=== PATIENT | male | born 1955 | race Caucasian/White ===

== ENCOUNTER 2020-07-08 20:18 | Inpatient (IN) ==
[2020-07-08] MEDS ORDERED: SODIUM CHLORIDE 0.9% 1000ML 1,000 ML IV SCH (23:15)
--- NOTE | 2020-07-08 23:15 | Emergency Department Note ---
History of Present Illness General Chief complaint: Wound Stated complaint: ankle pain in both ankles Time Seen by Provider: 07/08/20 23:00 Source: patient Mode of arrival: ambulatory Limitations: no limitations History of Present Illness Provider complaint: Bilateral leg infection Onset (ago): month(s) 1 Location: lower extremity Radiation: non-radiation Pain Consistency: + constant Maximum Pain Intensity: 5 Quality: + aching Relieved By: + none Exacerbated By: + none Associated symptoms: + denies other symptoms Treatments prior to arrival: none This is a 64-year-old male who presents the emergency room at the insistence of his daughter after he showed her wounds to his lower extremities which she states first began a month ago. He states that began bilateral, and he thought it was a small area that had bruised from perhaps bumping into something. Patient does admit to being a diabetic and having diabetic neuropathy. Patient states he does not check his blood sugar at home. Patient states he uses oral diabetic medication. Patient states he has never had cellulitis. Patient states wounds did not heal and continued to worsen which led to increased edema, redness, weeping, and swelling. Patient denies any other rash or sores in any other extremity. Patient denies fevers or chills, nausea vomiting, abdominal pain, dizziness, or joint swelling. Patient denies any URI symptoms, or known exposure to coronavirus. Pt seen during a time of high acuity and national emergency pandemic while wearing PPE. Home Medications Medication Instructions Recorded Confirmed Type atorvastatin 10 mg PO DAILY 07/09/20 07/09/20 History benazepril 40 mg PO BID 07/09/20 07/09/20 History cyanocobalamin (vitamin B-12) 1,000 mcg PO DAILY 07/09/20 07/09/20 History diltiazem HCl [Cardizem CD] 180 mg PO DAILY 07/09/20 07/09/20 History empagliflozin [Jardiance] 25 mg PO DAILY 07/09/20 07/09/20 History glipizide 5 mg PO BID 07/09/20 07/09/20 History hydrochlorothiazide 50 mg PO DAILY 07/09/20 07/09/20 History metformin 500 mg PO BID 07/09/20 07/09/20 History metoprolol succinate 100 mg PO BID 07/09/20 07/09/20 History warfarin 5 mg PO DAILY 07/09/20 07/09/20 History Allergies Allergy/AdvReac Type Severity Reaction Status Date / Time No Known Allergies Allergy Unverified 07/09/20 00:34 Past Med/Surg History Social History Smoking Status: Never smoker Preferred Language: Yi Feels Safe at Home: Yes Review of Systems See HPI for pertinent positives & negatives. and A total of 10 systems reviewed and were otherwise negative Physical Exam Vital Signs Vital Signs - 24 hr 07/08/20 20:30 07/08/20 22:54 07/08/20 23:00 Temperature 36.6 C Temperature Source Oral Pulse Rate 95 H 95 H 83 Pulse Rate from SpO2 Sensor 94 H Pulse Rhythm Regular Respiratory Rate 18 15 18 Respiratory Effort / Characteristics Non-Labored Spontaneous Non-Labored Spontaneous Respiratory Depth Normal Respiratory Pattern Regular Blood Pressure 105/70 98/73 L Blood Pressure Mean 81 76 Blood Pressure Position Sitting Pulse Oximetry 95 100 98 Oxygen Delivery Method Room Air Room Air Sepsis Recent Fever Within 48 Hours No Sepsis New/Unexplained Change in Mental Status N/A Sepsis Action Taken by Nursing No Action Required 07/09/20 00:45 07/09/20 01:00 07/09/20 01:30 Temperature Temperature Source Pulse Rate 89 88 85 Pulse Rate from SpO2 Sensor Pulse Rhythm Respiratory Rate 12 16 14 Respiratory Effort / Characteristics Respiratory Depth Respiratory Pattern Blood Pressure 110/83 113/73 107/63 Blood Pressure Mean 95 76 83 Blood Pressure Position Pulse Oximetry 98 98 98 Oxygen Delivery Method Sepsis Recent Fever Within 48 Hours Sepsis New/Unexplained Change in Mental Status Sepsis Action Taken by Nursing 07/09/20 02:01 Temperature Temperature Source Pulse Rate 86 Pulse Rate from SpO2 Sensor Pulse Rhythm Respiratory Rate 15 Respiratory Effort / Characteristics Respiratory Depth Respiratory Pattern Blood Pressure 120/97 Blood Pressure Mean 113 Blood Pressure Position Pulse Oximetry 98 Oxygen Delivery Method Sepsis Recent Fever Within 48 Hours Sepsis New/Unexplained Change in Mental Status Sepsis Action Taken by Nursing GENERAL: alert, well appearing, well nourished, no distress, non-toxic EYE EXAM: normal conjunctiva, PERRL and EOM's grossly intact OROPHARYNX: no exudate, no erythema, lips, buccal mucosa, and tongue normal and mucous membranes are moist NECK: supple, no nuchal rigidity, no adenopathy, non-tender LUNGS: Clear to auscultation. Normal chest wall mechanics, no w/r/r HEART: no murmurs, S1 normal and S2 normal ABDOMEN: abdomen soft, non-tender, normo-active bowel sounds, no masses, no rebound or guarding. BACK: Back is symmetrical on inspection and there is no deformity, no midline tenderness, no CVA tenderness. SKIN: No rashes/sores noted with the exception of bilateral lower extremities with evidence of worsening wounds, cellulitis, weeping from blistered areas UPPER EXTREMITIES: upper extremities are grossly normal. FROM, nml pulses b/l. LOWER EXTREMITIES: 2+ pitting edema. Significant bilateral distal lower extremities near circumferential cellulitis, excoriated lesions, crusting, old appearing wounds, FROM, nml pulses b/l. NEURO EXAM: Normal sensorium, cranial nerves II-XII grossly intact, normal speech, no gross weakness of arms, no gross weakness of legs. Gross sensation intact. Course Course 0026: Updated pt on results. Asking for tums. 0040: Discussed with Dr. Urrutia. Administered Medications Insulin Human Regular 250 (units/ Sodium Chloride) 250 mls @ 3.9 mls/hr IV .Q24H [facility]; Protocol Stop: 08/08/20 00:14 Last Titration: 07/09/20 03:34 Dose: 0 units/hr, 0 mls/hr Documented by: [id number] Cosigned by: [id number] Titration: 07/09/20 02:00 Dose: 3.9 units/hr, 3.9 mls/hr Documented by: [id number] Cosigned by: [id number] Admin: 07/09/20 00:56 Dose: 3.9 units/hr, 3.9 mls/hr Documented by: [id number] Cosigned by: [id number] Sodium Chloride (Nss 1000ml) 1,000 mls @ 250 mls/hr IV .Q4H ONE Stop: 07/09/20 05:25 Last Admin: 07/09/20 01:50 Dose: 250 mls/hr Documented by: [id number] Discontinued Medications Calcium Carbonate (Calcium Carbonate 500 Mg Chewable Tab) 500 mg PO NOW STA Stop: 07/09/20 00:14 Last Admin: 07/09/20 00:28 Dose: 500 mg Documented by: [id number] Famotidine (Famotidine 20mg/5ml Iv Push) 20 mg IV ONE STA Stop: 07/09/20 00:14 Last Admin: 07/09/20 00:28 Dose: 20 mg Documented by: [id number] Sodium Chloride (Nss 1000ml) 1,000 mls @ 125 mls/hr IV .Q8H [facility] Stop: 08/07/20 23:14 Last Infusion: 07/09/20 02:07 Dose: 0 mls/hr Documented by: [id number] Admin: 07/09/20 00:09 Dose: 125 mls/hr Documented by: [id number] Cefepime HCl (Maxipime) 2,000 mg in 20 mls @ 5 mls/min IV NOW STA Stop: 07/08/20 23:35 Last Admin: 07/09/20 00:08 Dose: 5 mls/min Documented by: [id number] Vancomycin HCl 2,000 mg/ (Sodium Chloride) 540 mls @ 200 mls/hr IV NOW ONE Stop: 07/09/20 02:13 Last Admin: 07/09/20 00:08 Dose: 200 mls/hr Documented by: [id number] Sodium Chloride (Nss 1000ml) 1,000 mls @ 999 mls/hr IV .Q1H1M ONE Stop: 07/09/20 01:09 Last Infusion: 07/09/20 02:07 Dose: 0 mls/hr Documented by: [id number] Admin: 07/09/20 00:53 Dose: 999 mls/hr Documented by: [id number] Insulin Human Regular (Novolin-R Bolus From Bag) 8 units IV ONE ONE Stop: 07/09/20 00:31 Last Admin: 07/09/20 00:57 Dose: 8 units Documented by: [id number] Cosigned by: [id number] Critical Care Time Critical Care Time: Yes Total Critical Care Time: 42 Critical care of 42 min performed to assess and manage high likelihood of life- threatening HHS and cellulitis, involving labs and imaging performed with assessment to evaluate HHS and cellulitis diagnosis with frequent reassessment. This time includes bedside time, treatment discussions with patient/family /consultants, documentation time and excludes procedure time. Medical Decision Making Differential Diagnosis Differential diagnosis includees etiologies such as cellulitis, abscess, MRSA infection, DVT, necrotizing fasciitis, dermatitis, drug eruption, as well as others were entertained. Medical Records Attestation: I reviewed the patient's medical records. Home Medications Current Medication List: was personally reviewed by me Laboratory Data Attestation: I reviewed the patient's lab results. Result diagrams: 07/09/20 00:43 07/08/20 22:33 Lab Results 07/08/20 07/08/20 07/08/20 Range/Units 22:33 22:33 23:00 WBC Cancelled RBC Cancelled Hgb Cancelled Hct Cancelled MCV Cancelled MCH Cancelled MCHC Cancelled RDW Std Deviation Cancelled RDW Coeff of Jamal Cancelled Plt Count Cancelled MPV Cancelled Immature Gran % (Auto) Cancelled Neut % (Auto) Cancelled Lymph % (Auto) Cancelled Schley % (Auto) Cancelled Eos % (Auto) Cancelled Baso % (Auto) Cancelled Neut # (Auto) Cancelled Lymph # (Auto) Cancelled Schley # (Auto) Cancelled Eos # (Auto) Cancelled Baso # (Auto) Cancelled Immature Gran # (Auto) Cancelled Absolute Nucleated RBC Cancelled Nucleated RBC % (auto) Cancelled Neutrophils % (Manual) Cancelled Band Neutrophils % Cancelled Lymphocytes % (Manual) Cancelled Prolymphocyte % Cancelled Reactive Lymphs % (Man) Cancelled Monocytes % (Manual) Cancelled Eosinophils % (Manual) Cancelled Basophils % (Manual) Cancelled Metamyelocytes % (Man) Cancelled Myelocytes % (Man) Cancelled Promyelocytes % (Man) Cancelled Blast Cells % (Manual) Cancelled Plasma Cell % (Manual) Cancelled Other Cells % Cancelled Nucleated RBC % Cancelled Neutrophils # (Manual) Cancelled Band Neutrophils # Cancelled Total Absolute Neuts Cancelled Lymphocytes # (Manual) Cancelled Prolymphocyte # Cancelled Reactive Lymphs # Cancelled Total Abs Lymphocytes Cancelled Monocytes # (Manual) Cancelled Eosinophils # (Manual) Cancelled Basophils # (Manual) Cancelled Metamyelocytes # (Man) Cancelled Myelocytes # (Manual) Cancelled Promyelocytes # (Man) Cancelled Blast Cells # (Man) Cancelled Plasma Cell # (Manual) Cancelled Other Cells # Cancelled Nucleated RBCs # (Man) Cancelled Hypersegmented Neuts Cancelled Hyposegmented Neuts Cancelled Hypogranular Neuts Cancelled Large Granular Lymphs Cancelled # Lrg Granular Lymphs Cancelled Hairy Cells Cancelled Smudge Cells Cancelled Toxic Granulation Cancelled Toxic Vacuolation Cancelled Dohle Bodies Cancelled David Rods Cancelled Platelet Estimate Cancelled Hypogranular Platelets Cancelled Clumped Platelets Cancelled Giant Platelets Cancelled Platelet Satelliting Cancelled RBC Morphology Cancelled Polychromasia Cancelled Hypochromasia Cancelled Poikilocytosis Cancelled Basophilic Stippling Cancelled Anisocytosis Cancelled Microcytosis Cancelled Macrocytosis Cancelled Spherocytes Cancelled Pappenheimer Bodies Cancelled Sickle Cells Cancelled Target Cells Cancelled Tear Drop Cells Cancelled Ovalocytes Cancelled Stomatocytes Cancelled Glover-Bells Bodies Cancelled Echinocytes Cancelled Acanthocytes (Spur) Cancelled Rouleaux Cancelled RBC Agglutinates Cancelled Schistocytes Cancelled RBC Morph Comment Cancelled Sezary Cell Cancelled PT (9.0-12.0) Seconds INR (0.9-1.1) APTT (21.0-31.0) Seconds PTT Ratio ABG pH (7.35-7.45) ABG pCO2 (35-46) mmHg ABG pO2 (80-95) mmHg ABG HCO3 (19-24) mmol/L ABG O2 Saturation (90-95) % ABG Base Excess (-9-1.8) mEq/L Mario Test (Pos) Barometric Pressure mm/Hg Oxygen Given Sodium 122 L (136-145) mmol/L Potassium 5.7 H (3.5-5.1) mmol/L Chloride 91 L (98-107) mmol/L Carbon Dioxide 20 L (21-32) mmol/L Anion Gap 11.0 (3-11) BUN 79 H (7-18) mg/dl Creatinine 2.80 H (0.6-1.4) mg/dl Est Cr Clr Drug Dosing 33.4 ml/min Est GFR ( Amer) 26.1 Est GFR (Non-Af Amer) 22.5 BUN/Creatinine Ratio 28.1 H (10-20) Glucose 645 H* (70-99) mg/dl POC Glucose > 600 H* (70-99) mg/dl Lactate (0.4-2.0) mmol/L Calcium 9.0 (8.5-10.1) mg/dl Phosphorus (2.5-4.9) mg/dl Magnesium (1.8-2.4) mg/dl Total Bilirubin 0.4 (0.2-1) mg/dl AST 16 (15-37) U/L ALT 19 (12-78) U/L Alkaline Phosphatase 165 H (45-117) U/L Total Protein 8.4 H (6.4-8.2) gm/dl Albumin 2.2 L (3.4-5.0) gm/dl Globulin 6.2 H (2.5-4.0) gm/dl Albumin/Globulin Ratio 0.4 L (0.9-2) Beta-Hydroxybutyric Acd 1.12 (0.2-2.81) mg/dl Procalcitonin (0-0.5) ng/ml Specimen Hemolysis SARS-CoV-2 Ag (Rapid) (Negative) 07/08/20 07/08/20 07/08/20 Range/Units 23:02 23:17 23:17 WBC RBC Hgb Hct MCV MCH MCHC RDW Std Deviation RDW Coeff of Jamal Plt Count MPV Immature Gran % (Auto) Neut % (Auto) Lymph % (Auto) Schley % (Auto) Eos % (Auto) Baso % (Auto) Neut # (Auto) Lymph # (Auto) Schley # (Auto) Eos # (Auto) Baso # (Auto) Immature Gran # (Auto) Absolute Nucleated RBC Nucleated RBC % (auto) Neutrophils % (Manual) Band Neutrophils % Lymphocytes % (Manual) Prolymphocyte % Reactive Lymphs % (Man) Monocytes % (Manual) Eosinophils % (Manual) Basophils % (Manual) Metamyelocytes % (Man) Myelocytes % (Man) Promyelocytes % (Man) Blast Cells % (Manual) Plasma Cell % (Manual) Other Cells % Nucleated RBC % Neutrophils # (Manual) Band Neutrophils # Total Absolute Neuts Lymphocytes # (Manual) Prolymphocyte # Reactive Lymphs # Total Abs Lymphocytes Monocytes # (Manual) Eosinophils # (Manual) Basophils # (Manual) Metamyelocytes # (Man) Myelocytes # (Manual) Promyelocytes # (Man) Blast Cells # (Man) Plasma Cell # (Manual) Other Cells # Nucleated RBCs # (Man) Hypersegmented Neuts Hyposegmented Neuts Hypogranular Neuts Large Granular Lymphs # Lrg Granular Lymphs Hairy Cells Smudge Cells Toxic Granulation Toxic Vacuolation Dohle Bodies David Rods Platelet Estimate Hypogranular Platelets Clumped Platelets Giant Platelets Platelet Satelliting RBC Morphology Polychromasia Hypochromasia Poikilocytosis Basophilic Stippling Anisocytosis Microcytosis Macrocytosis Spherocytes Pappenheimer Bodies Sickle Cells Target Cells Tear Drop Cells Ovalocytes Stomatocytes Glover-Bells Bodies Echinocytes Acanthocytes (Spur) Rouleaux RBC Agglutinates Schistocytes RBC Morph Comment Sezary Cell PT 65.5 H (9.0-12.0) Seconds INR 6.9 H* (0.9-1.1) APTT 64.4 H* (21.0-31.0) Seconds PTT Ratio 2.3 ABG pH (7.35-7.45) ABG pCO2 (35-46) mmHg ABG pO2 (80-95) mmHg ABG HCO3 (19-24) mmol/L ABG O2 Saturation (90-95) % ABG Base Excess (-9-1.8) mEq/L Mario Test (Pos) Barometric Pressure mm/Hg Oxygen Given Sodium (136-145) mmol/L Potassium (3.5-5.1) mmol/L Chloride (98-107) mmol/L Carbon Dioxide (21-32) mmol/L Anion Gap (3-11) BUN (7-18) mg/dl Creatinine (0.6-1.4) mg/dl Est Cr Clr Drug Dosing ml/min Est GFR ( Amer) Est GFR (Non-Af Amer) BUN/Creatinine Ratio (10-20) Glucose (70-99) mg/dl POC Glucose > 600 H* (70-99) mg/dl Lactate (0.4-2.0) mmol/L Calcium (8.5-10.1) mg/dl Phosphorus (2.5-4.9) mg/dl Magnesium 2.5 H (1.8-2.4) mg/dl Total Bilirubin (0.2-1) mg/dl AST (15-37) U/L ALT (12-78) U/L Alkaline Phosphatase (45-117) U/L Total Protein (6.4-8.2) gm/dl Albumin (3.4-5.0) gm/dl Globulin (2.5-4.0) gm/dl Albumin/Globulin Ratio (0.9-2) Beta-Hydroxybutyric Acd (0.2-2.81) mg/dl Procalcitonin (0-0.5) ng/ml Specimen Hemolysis SARS-CoV-2 Ag (Rapid) (Negative) 07/08/20 07/09/20 07/09/20 Range/Units 23:36 00:40 00:43 WBC RBC Hgb Hct MCV MCH MCHC RDW Std Deviation RDW Coeff of Jamal Plt Count MPV Immature Gran % (Auto) Neut % (Auto) Lymph % (Auto) Schley % (Auto) Eos % (Auto) Baso % (Auto) Neut # (Auto) Lymph # (Auto) Schley # (Auto) Eos # (Auto) Baso # (Auto) Immature Gran # (Auto) Absolute Nucleated RBC Nucleated RBC % (auto) Neutrophils % (Manual) Band Neutrophils % Lymphocytes % (Manual) Prolymphocyte % Reactive Lymphs % (Man) Monocytes % (Manual) Eosinophils % (Manual) Basophils % (Manual) Metamyelocytes % (Man) Myelocytes % (Man) Promyelocytes % (Man) Blast Cells % (Manual) Plasma Cell % (Manual) Other Cells % Nucleated RBC % Neutrophils # (Manual) Band Neutrophils # Total Absolute Neuts Lymphocytes # (Manual) Prolymphocyte # Reactive Lymphs # Total Abs Lymphocytes Monocytes # (Manual) Eosinophils # (Manual) Basophils # (Manual) Metamyelocytes # (Man) Myelocytes # (Manual) Promyelocytes # (Man) Blast Cells # (Man) Plasma Cell # (Manual) Other Cells # Nucleated RBCs # (Man) Hypersegmented Neuts Hyposegmented Neuts Hypogranular Neuts Large Granular Lymphs # Lrg Granular Lymphs Hairy Cells Smudge Cells Toxic Granulation Toxic Vacuolation Dohle Bodies David Rods Platelet Estimate Hypogranular Platelets Clumped Platelets Giant Platelets Platelet Satelliting RBC Morphology Polychromasia Hypochromasia Poikilocytosis Basophilic Stippling Anisocytosis Microcytosis Macrocytosis Spherocytes Pappenheimer Bodies Sickle Cells Target Cells Tear Drop Cells Ovalocytes Stomatocytes Glover-Bells Bodies Echinocytes Acanthocytes (Spur) Rouleaux RBC Agglutinates Schistocytes RBC Morph Comment Sezary Cell PT (9.0-12.0) Seconds INR (0.9-1.1) APTT (21.0-31.0) Seconds PTT Ratio ABG pH (7.35-7.45) ABG pCO2 (35-46) mmHg ABG pO2 (80-95) mmHg ABG HCO3 (19-24) mmol/L ABG O2 Saturation (90-95) % ABG Base Excess (-9-1.8) mEq/L Mario Test (Pos) Barometric Pressure mm/Hg Oxygen Given Sodium (136-145) mmol/L Potassium (3.5-5.1) mmol/L Chloride (98-107) mmol/L Carbon Dioxide (21-32) mmol/L Anion Gap (3-11) BUN (7-18) mg/dl Creatinine (0.6-1.4) mg/dl Est Cr Clr Drug Dosing ml/min Est GFR ( Amer) Est GFR (Non-Af Amer) BUN/Creatinine Ratio (10-20) Glucose (70-99) mg/dl POC Glucose (70-99) mg/dl Lactate 3.0 H* (0.4-2.0) mmol/L Calcium (8.5-10.1) mg/dl Phosphorus 3.4 (2.5-4.9) mg/dl Magnesium (1.8-2.4) mg/dl Total Bilirubin (0.2-1) mg/dl AST (15-37) U/L ALT (12-78) U/L Alkaline Phosphatase (45-117) U/L Total Protein (6.4-8.2) gm/dl Albumin (3.4-5.0) gm/dl Globulin (2.5-4.0) gm/dl Albumin/Globulin Ratio (0.9-2) Beta-Hydroxybutyric Acd (0.2-2.81) mg/dl Procalcitonin 0.14 (0-0.5) ng/ml Specimen Hemolysis SARS-CoV-2 Ag (Rapid) (Negative) 07/09/20 07/09/20 07/09/20 Range/Units 00:43 00:43 00:43 WBC 9.35 RBC 4.19 L Hgb 11.7 L Hct 34.6 L MCV 82.6 MCH 27.9 MCHC 33.8 RDW Std Deviation 43.2 RDW Coeff of Jamal 14.4 Plt Count 274 MPV 11.2 H Immature Gran % (Auto) 0.4 Neut % (Auto) 71.3 Lymph % (Auto) 14.2 Schley % (Auto) 12.9 Eos % (Auto) 1.1 Baso % (Auto) 0.1 Neut # (Auto) 6.66 H Lymph # (Auto) 1.33 Schley # (Auto) 1.21 H Eos # (Auto) 0.10 Baso # (Auto) 0.01 Immature Gran # (Auto) 0.04 H Absolute Nucleated RBC Nucleated RBC % (auto) Neutrophils % (Manual) Band Neutrophils % Lymphocytes % (Manual) Prolymphocyte % Reactive Lymphs % (Man) Monocytes % (Manual) Eosinophils % (Manual) Basophils % (Manual) Metamyelocytes % (Man) Myelocytes % (Man) Promyelocytes % (Man) Blast Cells % (Manual) Plasma Cell % (Manual) Other Cells % Nucleated RBC % Neutrophils # (Manual) Band Neutrophils # Total Absolute Neuts Lymphocytes # (Manual) Prolymphocyte # Reactive Lymphs # Total Abs Lymphocytes Monocytes # (Manual) Eosinophils # (Manual) Basophils # (Manual) Metamyelocytes # (Man) Myelocytes # (Manual) Promyelocytes # (Man) Blast Cells # (Man) Plasma Cell # (Manual) Other Cells # Nucleated RBCs # (Man) Hypersegmented Neuts Hyposegmented Neuts Hypogranular Neuts Large Granular Lymphs # Lrg Granular Lymphs Hairy Cells Smudge Cells Toxic Granulation Toxic Vacuolation Dohle Bodies David Rods Platelet Estimate Hypogranular Platelets Clumped Platelets Giant Platelets Platelet Satelliting RBC Morphology Polychromasia Hypochromasia Poikilocytosis Basophilic Stippling Anisocytosis Microcytosis Macrocytosis Spherocytes Pappenheimer Bodies Sickle Cells Target Cells Tear Drop Cells Ovalocytes Stomatocytes Glover-Bells Bodies Echinocytes Acanthocytes (Spur) Rouleaux RBC Agglutinates Schistocytes RBC Morph Comment Sezary Cell PT (9.0-12.0) Seconds INR (0.9-1.1) APTT (21.0-31.0) Seconds PTT Ratio ABG pH 7.37 (7.35-7.45) ABG pCO2 32 L (35-46) mmHg ABG pO2 105 H (80-95) mmHg ABG HCO3 18 L (19-24) mmol/L ABG O2 Saturation 97.9 H (90-95) % ABG Base Excess -6.5 (-9-1.8) mEq/L Mario Test Pos (Pos) Barometric Pressure 729.7 mm/Hg Oxygen Given ROOMAIR Sodium (136-145) mmol/L Potassium (3.5-5.1) mmol/L Chloride (98-107) mmol/L Carbon Dioxide (21-32) mmol/L Anion Gap (3-11) BUN (7-18) mg/dl Creatinine (0.6-1.4) mg/dl Est Cr Clr Drug Dosing ml/min Est GFR ( Amer) Est GFR (Non-Af Amer) BUN/Creatinine Ratio (10-20) Glucose (70-99) mg/dl POC Glucose (70-99) mg/dl Lactate 2.1 H* (0.4-2.0) mmol/L Calcium (8.5-10.1) mg/dl Phosphorus (2.5-4.9) mg/dl Magnesium (1.8-2.4) mg/dl Total Bilirubin (0.2-1) mg/dl AST (15-37) U/L ALT (12-78) U/L Alkaline Phosphatase (45-117) U/L Total Protein (6.4-8.2) gm/dl Albumin (3.4-5.0) gm/dl Globulin (2.5-4.0) gm/dl Albumin/Globulin Ratio (0.9-2) Beta-Hydroxybutyric Acd (0.2-2.81) mg/dl Procalcitonin (0-0.5) ng/ml Specimen Hemolysis SARS-CoV-2 Ag (Rapid) (Negative) 07/09/20 07/09/20 07/09/20 Range/Units 01:56 02:10 03:19 WBC RBC Hgb Hct MCV MCH MCHC RDW Std Deviation RDW Coeff of Jamal Plt Count MPV Immature Gran % (Auto) Neut % (Auto) Lymph % (Auto) Schley % (Auto) Eos % (Auto) Baso % (Auto) Neut # (Auto) Lymph # (Auto) Schley # (Auto) Eos # (Auto) Baso # (Auto) Immature Gran # (Auto) Absolute Nucleated RBC Nucleated RBC % (auto) Neutrophils % (Manual) Band Neutrophils % Lymphocytes % (Manual) Prolymphocyte % Reactive Lymphs % (Man) Monocytes % (Manual) Eosinophils % (Manual) Basophils % (Manual) Metamyelocytes % (Man) Myelocytes % (Man) Promyelocytes % (Man) Blast Cells % (Manual) Plasma Cell % (Manual) Other Cells % Nucleated RBC % Neutrophils # (Manual) Band Neutrophils # Total Absolute Neuts Lymphocytes # (Manual) Prolymphocyte # Reactive Lymphs # Total Abs Lymphocytes Monocytes # (Manual) Eosinophils # (Manual) Basophils # (Manual) Metamyelocytes # (Man) Myelocytes # (Manual) Promyelocytes # (Man) Blast Cells # (Man) Plasma Cell # (Manual) Other Cells # Nucleated RBCs # (Man) Hypersegmented Neuts Hyposegmented Neuts Hypogranular Neuts Large Granular Lymphs # Lrg Granular Lymphs Hairy Cells Smudge Cells Toxic Granulation Toxic Vacuolation Dohle Bodies David Rods Platelet Estimate Hypogranular Platelets Clumped Platelets Giant Platelets Platelet Satelliting RBC Morphology Polychromasia Hypochromasia Poikilocytosis Basophilic Stippling Anisocytosis Microcytosis Macrocytosis Spherocytes Pappenheimer Bodies Sickle Cells Target Cells Tear Drop Cells Ovalocytes Stomatocytes Glover-Bells Bodies Echinocytes Acanthocytes (Spur) Rouleaux RBC Agglutinates Schistocytes RBC Morph Comment Sezary Cell PT (9.0-12.0) Seconds INR (0.9-1.1) APTT (21.0-31.0) Seconds PTT Ratio ABG pH (7.35-7.45) ABG pCO2 (35-46) mmHg ABG pO2 (80-95) mmHg ABG HCO3 (19-24) mmol/L ABG O2 Saturation (90-95) % ABG Base Excess (-9-1.8) mEq/L Mario Test (Pos) Barometric Pressure mm/Hg Oxygen Given Sodium (136-145) mmol/L Potassium (3.5-5.1) mmol/L Chloride (98-107) mmol/L Carbon Dioxide (21-32) mmol/L Anion Gap (3-11) BUN (7-18) mg/dl Creatinine (0.6-1.4) mg/dl Est Cr Clr Drug Dosing ml/min Est GFR ( Amer) Est GFR (Non-Af Amer) BUN/Creatinine Ratio (10-20) Glucose (70-99) mg/dl POC Glucose 404 H* 240 H (70-99) mg/dl Lactate (0.4-2.0) mmol/L Calcium (8.5-10.1) mg/dl Phosphorus (2.5-4.9) mg/dl Magnesium (1.8-2.4) mg/dl Total Bilirubin (0.2-1) mg/dl AST (15-37) U/L ALT (12-78) U/L Alkaline Phosphatase (45-117) U/L Total Protein (6.4-8.2) gm/dl Albumin (3.4-5.0) gm/dl Globulin (2.5-4.0) gm/dl Albumin/Globulin Ratio (0.9-2) Beta-Hydroxybutyric Acd (0.2-2.81) mg/dl Procalcitonin (0-0.5) ng/ml Specimen Hemolysis SARS-CoV-2 Ag (Rapid) Negative (Negative) Imaging Data My Impression: Right foot 2 view: Images reviewed and interpreted by me, no obvious soft tissue gas, no acute fracture or dislocation Left foot 2 view: Images reviewed and interpreted by me, no obvious soft tissue gas, no acute fracture or dislocation Chest: A single view study of the chest was reviewed and was negative for cardiomegaly, focal infiltrate, effusion, pulmonary edema, or wide mediastinum. ECG Data Attestation: I personally reviewed and interpreted this ECG as follows: Indication: + tachycardia Rate (beats per minute): 92 Rhythm: + atrial fibrillation ECG Intervals/blocks: + Normal QRS and + Normal QT ECG [place]: + Normal ECG ST segments: + Nonspecific ST abnormalities MDM Narrative This is a 64-year-old male presents the emergency department with concern for worsening lower extremity wounds. Patient is a known diabetic, and noncompliant with his diabetic management. Patient with severe cellulitis, multiple wounds in various stages, edema noted to bilateral distal lower extremities. No recent appearing trauma. Patient denies prior history of MRSA. Labs drawn and sent, [id number] glucose at bedside read "high". Patient afebrile and hemodynamically stable. Patient does admit to anticoagulation due to history of atrial fibrillation. Patient denies any other systemic symptoms. While patient had no leukocytosis, patient had elevated lactic acid, glucose greater than 600, creatinine of 2.8, sodium of 122 which is likely delusional from the elevated glucose. Patient's procalcitonin was reassuring. X-rays did not reveal any soft tissue gas or obvious evidence of osteomyelitis although I feel patient is high risk. At this time I do not suspect necrotizing fasciitis, although I still feel patient may be at risk of osteomyelitis and additional imaging may be required. Patient started on insulin drip due to concern for HHS. Patient was hydrated with a bolus of normal saline and then maintenance infusion. Patient was made aware of all results, risks associated with elevated glucose and prolonged infection, risks associated with poor management of his diabetes, need for additional inpatient evaluation, he verbalized understanding was in agreement with plan. Patient was started on IV vancomycin and cefepime. Case discussed with hospitalist for additional inpatient management. An order was placed for continuous cardiac monitoring. The monitor shows a rate of _98_ with _atrial fibrillation rhythm. Impression & Plan Cellulitis, Hyperosmolar hyperglycemic state (HHS), VICKEY (acute kidney injury), Non-compliance, Supratherapeutic INR, Atrial fibrillation Discharge Plan Visit Data Chief Complaint: Wound Stated Complaint: ankle pain in both ankles ED Provider: Taty Worthington Discharge Problem: Cellulitis, Hyperosmolar hyperglycemic state (HHS), VICKEY (acute kidney injury), Non-compliance, Supratherapeutic INR, Atrial fibrillation Forms Stand Alone Forms: My [facility] Prescriptions Prescriptions: No Action metformin 500 mg Tablet 500 mg PO BID RF: 0 atorvastatin 10 mg Tablet 10 mg PO DAILY RF: 0 diltiazem HCl [Cardizem CD] 180 mg Capsule,Extended Release 24hr 180 mg PO DAILY RF: 0 hydrochlorothiazide 50 mg Tablet 50 mg PO DAILY RF: 0 metoprolol succinate 100 mg Tablet Extended Release 24 Hr 100 mg PO BID RF: 0 benazepril 40 mg Tablet 40 mg PO BID RF: 0 glipizide 5 mg Tablet 5 mg PO BID RF: 0 Jardiance 25 mg Tablet 25 mg PO DAILY RF: 0 cyanocobalamin (vitamin B-12) 1,000 mcg Tablet 1,000 mcg PO DAILY RF: 0 warfarin 5 mg Tablet 5 mg PO DAILY RF: 0 Discharge Problem: Cellulitis Qualifiers: Site of cellulitis: extremity Site of cellulitis of extremity: lower extremity Laterality: unspecified laterality Qualified Code(s): L03.119 - Cellulitis of unspecified part of limb Atrial fibrillation Qualifiers: Atrial fibrillation type: persistent (not longstanding) Qualified Code(s): I48.19 - Other persistent atrial fibrillation
[2020-07-08] MEDS ORDERED: CEFEPIME 2,000 MG/20 ML VIAL IV STA (23:32)
[2020-07-08] MEDS ORDERED: VANCOMYCIN CONSULT ACTIVE PRN ×2 (23:32)
[2020-07-08] MEDS ORDERED: VANCOMYCIN HCL 2,000 MG in SODIUM CHLORIDE 0.9% 500 ML IV ONE (23:32)
[2020-07-08 23:57] LABS: Albumin Globulin Ratio 0.4 (0.9-2); Albumin Level 2.2 gm/dl (3.4-5.0); BUN Creatinine Ratio 28.1 (10-20); Bilirubin,Total 0.4 mg/dl (0.2-1); Creatinine Clr Calc Pharmacy 33.4 ml/min; Est GFR (African American) 26.1; Est GFR (Non-African American) 22.5; Globulin 6.2 gm/dl (2.5-4.0); Potassium 5.7 mmol/L (3.5-5.1); Total Protein 8.4 gm/dl (6.4-8.2)
[2020-07-08 23:58] LABS: Magnesium 2.5 mg/dl (1.8-2.4)
[2020-07-09] MEDS ORDERED: CARBOHYDRATES FOR HYPOGLYCEMIA PO PRN (00:09)
[2020-07-09] MEDS ORDERED: HHS GOAL RANGE 250-350 mg/dl ONE (00:09)
[2020-07-09] MEDS ORDERED: DEXTROSE 50% 50 ML SYRINGE IV PRN ×2 (00:09→04:15)
[2020-07-09] MEDS ORDERED: GLUCOSE 10 TABS/TUBE PO PRN ×2 (00:09→04:15)
[2020-07-09] MEDS ORDERED: GLUCOSE 40% GEL 15 GM TUBE PO PRN ×2 (00:09→04:15)
[2020-07-09] MEDS ORDERED: SODIUM CHLORIDE 0.9% 1000ML 1,000 ML IV ONE ×2 (00:09→01:26)
[2020-07-09] MEDS ORDERED: GLUCAGON FOR INJ 1 MG VIAL SQ PRN ×2 (00:09→05:50)
[2020-07-09 00:13] LABS: Partial Thromboplastin Ratio 2.3; Prothrombin Time 65.5 Seconds (9.0-12.0)
[2020-07-09] MEDS ORDERED: CALCIUM CARBONATE 500 MG CHEWABLE TAB PO STA (00:13)
[2020-07-09] MEDS ORDERED: FAMOTIDINE 20MG/5ML IV PUSH IV STA (00:13)
[2020-07-09] MEDS ORDERED: INSULIN REGULAR 250 UNITS in SODIUM CHLORIDE 0.9% 247.5 ML IV SCH (00:15)
[2020-07-09] MEDS ORDERED: NovoLIN-R BOLUS FROM BAG IV ONE (00:30)
[2020-07-09 00:31] LABS: Partial Thromboplastin Time 64.4 Seconds (21.0-31.0)
[2020-07-09 01:00] LABS: Base Excess ABG -6.5 mEq/L (-9-1.8); HCO3 ABG 18 mmol/L (19-24); Oxygen Saturation ABG 97.9 % (90-95); PCO2 ABG 32 mmHg (35-46); PO2 ABG 105 mmHg (80-95); pH ABG 7.37 (7.35-7.45)
[2020-07-09 01:03] LABS: Allen Test Pos (Pos)
[2020-07-09 01:17] LABS: Basophils # (auto) 0.01 K/uL (0-0.2); Basophils % (auto) 0.1 %; Eosinophils % (auto) 1.1 %; Hematocrit (blood only) 34.6 % (42-52); Hemoglobin 11.7 g/dL (14.0-18.0); Immature Granulocytes # (auto) 0.04 K/uL (0.00-0.02); Immature Granulocytes % (auto) 0.4 %; Lymphocytes # (auto) 1.33 K/uL (1.2-3.4); Lymphocytes % (auto) 14.2 %; Mean Corpuscular Hemoglobin 27.9 pg (25-34); Mean Corpuscular Hgb Conc 33.8 g/dL (32-36); Mean Corpuscular Volume 82.6 fL (80-100); Mean Platelet Volume 11.2 fL (7.4-10.4); Monocytes # (auto) 1.21 K/uL (0.11-0.59); Monocytes % (auto) 12.9 %; Neutrophils # (auto) 6.66 K/uL (1.4-6.5); Neutrophils % (auto) 71.3 %; Platelet Count 274 K/uL (130-400); RDW Coefficient of Variation 14.4 % (11.5-14.5); RDW Standard Deviation 43.2 fL (36.4-46.3); Red Blood Count 4.19 M/uL (4.7-6.1); White Blood Count 9.35 K/uL (4.8-10.8)
[2020-07-09 01:23] LABS: Beta-Hydroxybutyrate 1.12 mg/dl (0.2-2.81)
[2020-07-09 01:27] LABS: INR 6.9 (0.9-1.1)
[2020-07-09] MEDS ORDERED: ACETAMINOPHEN 1,000 MG/100 ML VIAL IV STA (02:55)
[2020-07-09] MEDS ORDERED: INSULIN GLARGINE SOLOSTAR 100 UNITS/ML 3 ML PEN SC STA (03:26)
[2020-07-09] MEDS ORDERED: PHYTONADIONE 5 MG TAB PO STA (03:32)
--- NOTE | 2020-07-09 03:32 | History & Physical Report ---
Date of Service July 09, 2020 Assessment & Plan (1) Hyperglycemic crisis in diabetes mellitus: History DM2 on oral medications Suboptimal control as off recent outpatient hemoglobin A1c of 8.09 April 2019 Bilateral LE wounds No sepsis for now Rule out osteomyelitis Rule out peripheral arterial disease as contributory factor to poor healing ARF on CKD chronic systolic heart failure (EF 45% 2018), patient on the dry side atrial flutter on Coumadin, NSR, INR supratherapeutic hypertension, BP on the lower side hyperlipidemia on statin Rx history CVA as per records New onset anemia ? Secondary to kidney disease, stool FOBT negative Medical telemetry IV insulin overlap with basal Lantus Pharmacy glycemic control consult in a.m. Update hemoglobin A1c Diabetic education Cultures, Dapto, Zosyn MRI both lower legs, both feet rule out osteomyelitis ABIs Wound care provider consult Re: Bilateral LE wounds [facility] ID consult at some point once work-up completed Baseline UA, monitor creatinine response IVF Renal ultrasound if without improvement in kidney function Appropriate to hold home antihypertensives for now given low BP Anemia work-up, transfuse PRBC if hemoglobin less than 8 and or for symptomatic anemia Vitamin K 2.5 mg 1 dose now for supratherapeutic INR without obvious source for bleed. DVT prophylaxis. Coumadin INR goal between 2 and 3 Full code Text document was generated using [employer] voice recognition software. It may contain grammatical or spelling errors. Kindly contact undersigned for clarification of any documentation item in question. History of Present Illness Chief Complaint: Worsening leg wounds Primary Care Provider: Maico Lares MD History obtained from patient and records. Medical history significant for chronic systolic heart failure (EF 45% 2018), atrial flutter on Coumadin, hypertension, hyperlipidemia, history CVA, DM on oral medications, CRI (baseline creatinine 1.7 as of 2019). Last confinement April 2015 for CVA. Patient has had wounds on both lower legs sustained from bumping corners for about a month now as per patient. Wound with some drainage from time to time. No fever, no chills. Achy bilateral leg pain. No chest pain, no S OB. Patient sent to ER by daughter for evaluation due to worsening bilateral leg wound concerns. Patient received Vancomycin and Zosyn at the ER. IV insulin started at the ER for blood sugars in the 600s. Medical History as above Surgical History : Skin cancer surgery Family History : Lung cancer, hypertension Personal/Social history : Non-smoker, occasional EtOH intake, retired from factory work Allergies Allergy/AdvReac Type Severity Reaction Status Date / Time No Known Allergies Allergy Unverified 07/09/20 00:34 Home Medications Medication Instructions Recorded Confirmed Type atorvastatin 10 mg PO DAILY 07/09/20 07/09/20 History benazepril 40 mg PO BID 07/09/20 07/09/20 History cyanocobalamin (vitamin B-12) 1,000 mcg PO DAILY 07/09/20 07/09/20 History diltiazem HCl [Cardizem CD] 180 mg PO DAILY 07/09/20 07/09/20 History empagliflozin [Jardiance] 25 mg PO DAILY 07/09/20 07/09/20 History glipizide 5 mg PO BID 07/09/20 07/09/20 History hydrochlorothiazide 50 mg PO DAILY 07/09/20 07/09/20 History metformin 500 mg PO BID 07/09/20 07/09/20 History metoprolol succinate 100 mg PO BID 07/09/20 07/09/20 History warfarin 5 mg PO DAILY 07/09/20 07/09/20 History Past Med/Surg History Social History Smoking Status: Unknown if ever smoked Second Hand Exposure: No; Do You Dip or Chew Tobacco: No; Tobacco Cessation Education Requested by Patient: No Hx Alcohol Use: No Hx Substance Use: No Preferred Language: Hebrew Communication Ability: Effective Car Sales Consultant Required: No Beliefs That Will Affect Care: None Current Living Situation: Family Other Information That Helps Us Care for You: No Feels Safe at Home: Yes Safety Concerns: Feels Safe At This Time Assistive Devices: None Review of Systems Review of Systems: As per HPI, all 10 systems reviewed, all other ROS negative Physical Exam Physical Exam: GENERAL: Comfortable, pleasant, no respiratory distress SKIN: Pallor, warm HEENT: Partial alopecia, pale palpebral conjunctivae, no ptosis, dry buccal mucosa NECK : Supple, no tenderness CHEST : CTA, no tenderness HEART : RRR, no obvious murmurs ABDOMEN: Some distention, nontender RECTAL : Intact sphincter, yellow stool (FOBT negative) EXTREMITIES : sahely LE swelling (RLE markedly indurated), necrotic ulcerated wounds over both lower legs anterior surfaces with foul-smelling discharge R>L, minimal LE tenderness,, ulcerated wound right heel NEUROLOGIC : Coherent, no facial asymmetry, no other gross focality Results & Data Results & Data ([facility]) Vital Signs (Past 12 Hours) Vital Signs Temp Pulse Resp BP Pulse Ox 07/09/20 02:01 86 15 120/97 98 07/09/20 01:30 85 14 107/63 98 07/09/20 01:00 88 16 113/73 98 07/09/20 00:45 89 12 110/83 98 07/08/20 23:00 83 18 98 07/08/20 22:54 95 H 15 98/73 L 100 07/08/20 20:30 36.6 C 95 H 18 105/70 95 Laboratory Results Laboratory Results WBC 9.35 K/uL (4.8-10.8) 07/09/20 00:43 RBC 4.19 M/uL (4.7-6.1) L 07/09/20 00:43 Hgb 11.7 g/dL (14.0-18.0) L 07/09/20 00:43 Hct 34.6 % (42-52) L 07/09/20 00:43 MCV 82.6 fL (80-100) 07/09/20 00:43 MCH 27.9 pg (25-34) 07/09/20 00:43 MCHC 33.8 g/dL (32-36) 07/09/20 00:43 RDW Std Deviation 43.2 fL (36.4-46.3) 07/09/20 00:43 RDW Coeff of Jamal 14.4 % (11.5-14.5) 07/09/20 00:43 Plt Count 274 K/uL (130-400) 07/09/20 00:43 MPV 11.2 fL (7.4-10.4) H 07/09/20 00:43 Immature Gran % (Auto) 0.4 % 07/09/20 00:43 Neut % (Auto) 71.3 % 07/09/20 00:43 Lymph % (Auto) 14.2 % 07/09/20 00:43 Fleming % (Auto) 12.9 % 07/09/20 00:43 Eos % (Auto) 1.1 % 07/09/20 00:43 Baso % (Auto) 0.1 % 07/09/20 00:43 Neut # (Auto) 6.66 K/uL (1.4-6.5) H 07/09/20 00:43 Lymph # (Auto) 1.33 K/uL (1.2-3.4) 07/09/20 00:43 Fleming # (Auto) 1.21 K/uL (0.11-0.59) H 07/09/20 00:43 Eos # (Auto) 0.10 K/uL (0-0.5) 07/09/20 00:43 Baso # (Auto) 0.01 K/uL (0-0.2) 07/09/20 00:43 Immature Gran # (Auto) 0.04 K/uL (0.00-0.02) H 07/09/20 00:43 Absolute Nucleated RBC Cancelled 07/08/20 22:33 Nucleated RBC % (auto) Cancelled 07/08/20 22:33 Neutrophils % (Manual) Cancelled 07/08/20 22:33 Band Neutrophils % Cancelled 07/08/20 22:33 Lymphocytes % (Manual) Cancelled 07/08/20 22:33 Prolymphocyte % Cancelled 07/08/20 22:33 Reactive Lymphs % (Man) Cancelled 07/08/20 22:33 Monocytes % (Manual) Cancelled 07/08/20 22:33 Eosinophils % (Manual) Cancelled 07/08/20 22:33 Basophils % (Manual) Cancelled 07/08/20 22:33 Metamyelocytes % (Man) Cancelled 07/08/20 22:33 Myelocytes % (Man) Cancelled 07/08/20 22:33 Promyelocytes % (Man) Cancelled 07/08/20 22:33 Blast Cells % (Manual) Cancelled 07/08/20 22:33 Plasma Cell % (Manual) Cancelled 07/08/20 22:33 Other Cells % Cancelled 07/08/20 22:33 Nucleated RBC % Cancelled 07/08/20 22:33 Neutrophils # (Manual) Cancelled 07/08/20 22:33 Band Neutrophils # Cancelled 07/08/20 22:33 Total Absolute Neuts Cancelled 07/08/20 22:33 Lymphocytes # (Manual) Cancelled 07/08/20 22:33 Prolymphocyte # Cancelled 07/08/20 22:33 Reactive Lymphs # Cancelled 07/08/20 22:33 Total Abs Lymphocytes Cancelled 07/08/20 22:33 Monocytes # (Manual) Cancelled 07/08/20 22:33 Eosinophils # (Manual) Cancelled 07/08/20 22:33 Basophils # (Manual) Cancelled 07/08/20 22:33 Metamyelocytes # (Man) Cancelled 07/08/20 22:33 Myelocytes # (Manual) Cancelled 07/08/20 22:33 Promyelocytes # (Man) Cancelled 07/08/20 22:33 Blast Cells # (Man) Cancelled 07/08/20 22:33 Plasma Cell # (Manual) Cancelled 07/08/20 22:33 Other Cells # Cancelled 07/08/20 22:33 Nucleated RBCs # (Man) Cancelled 07/08/20 22:33 Hypersegmented Neuts Cancelled 07/08/20 22:33 Hyposegmented Neuts Cancelled 07/08/20 22:33 Hypogranular Neuts Cancelled 07/08/20 22:33 Large Granular Lymphs Cancelled 07/08/20 22:33 # Lrg Granular Lymphs Cancelled 07/08/20 22:33 Hairy Cells Cancelled 07/08/20 22:33 Smudge Cells Cancelled 07/08/20 22:33 Toxic Granulation Cancelled 07/08/20 22:33 Toxic Vacuolation Cancelled 07/08/20 22:33 Dohle Bodies Cancelled 07/08/20 22:33 David Rods Cancelled 07/08/20 22:33 Platelet Estimate Cancelled 07/08/20 22:33 Hypogranular Platelets Cancelled 07/08/20 22:33 Clumped Platelets Cancelled 07/08/20 22:33 Giant Platelets Cancelled 07/08/20 22:33 Platelet Satelliting Cancelled 07/08/20 22:33 RBC Morphology Cancelled 07/08/20 22:33 Polychromasia Cancelled 07/08/20 22:33 Hypochromasia Cancelled 07/08/20 22:33 Poikilocytosis Cancelled 07/08/20 22:33 Basophilic Stippling Cancelled 07/08/20 22:33 Anisocytosis Cancelled 07/08/20 22:33 Microcytosis Cancelled 07/08/20 22:33 Macrocytosis Cancelled 07/08/20 22:33 Spherocytes Cancelled 07/08/20 22:33 Pappenheimer Bodies Cancelled 07/08/20 22:33 Sickle Cells Cancelled 07/08/20 22:33 Target Cells Cancelled 07/08/20 22:33 Tear Drop Cells Cancelled 07/08/20 22:33 Ovalocytes Cancelled 07/08/20 22:33 Stomatocytes Cancelled 07/08/20 22:33 Glover-Blanca Bodies Cancelled 07/08/20 22:33 Echinocytes Cancelled 07/08/20 22:33 Acanthocytes (Spur) Cancelled 07/08/20 22:33 Rouleaux Cancelled 07/08/20 22:33 RBC Agglutinates Cancelled 07/08/20 22:33 Schistocytes Cancelled 07/08/20 22:33 RBC Morph Comment Cancelled 07/08/20 22:33 Sezary Cell Cancelled 07/08/20 22:33 PT 65.5 Seconds (9.0-12.0) H 07/08/20 23:17 INR 6.9 (0.9-1.1) H* 07/08/20 23:17 APTT 64.4 Seconds (21.0-31.0) H* 07/08/20 23:17 PTT Ratio 2.3 07/08/20 23:17 ABG pH 7.37 (7.35-7.45) 07/09/20 00:43 ABG pCO2 32 mmHg (35-46) L 07/09/20 00:43 ABG pO2 105 mmHg (80-95) H 07/09/20 00:43 ABG HCO3 18 mmol/L (19-24) L 07/09/20 00:43 ABG O2 Saturation 97.9 % (90-95) H 07/09/20 00:43 ABG Base Excess -6.5 mEq/L (-9-1.8) 07/09/20 00:43 Mario Test Pos (Pos) 07/09/20 00:43 Barometric Pressure 729.7 mm/Hg 07/09/20 00:43 Oxygen Given ROOMAIR 07/09/20 00:43 Sodium 122 mmol/L (136-145) L 07/08/20 22:33 Potassium 5.7 mmol/L (3.5-5.1) H 07/08/20 22:33 Chloride 91 mmol/L (98-107) L 07/08/20 22:33 Carbon Dioxide 20 mmol/L (21-32) L 07/08/20 22:33 Anion Gap 11.0 (3-11) 07/08/20 22:33 BUN 79 mg/dl (7-18) H 07/08/20 22:33 Creatinine 2.80 mg/dl (0.6-1.4) H 07/08/20 22:33 Est Cr Clr Drug Dosing 33.4 ml/min 07/08/20 22:33 Est GFR ( Amer) 26.1 07/08/20 22:33 Est GFR (Non-Af Amer) 22.5 07/08/20 22:33 BUN/Creatinine Ratio 28.1 (10-20) H 07/08/20 22:33 Glucose 645 mg/dl (70-99) H* 07/08/20 22:33 POC Glucose 240 mg/dl (70-99) H 07/09/20 03:19 Lactate 2.1 mmol/L (0.4-2.0) H* 07/09/20 00:43 Calcium 9.0 mg/dl (8.5-10.1) 07/08/20 22:33 Phosphorus 3.4 mg/dl (2.5-4.9) 07/09/20 00:43 Magnesium 2.5 mg/dl (1.8-2.4) H 07/08/20 23:17 Total Bilirubin 0.4 mg/dl (0.2-1) 07/08/20 22:33 AST 16 U/L (15-37) 07/08/20 22:33 ALT 19 U/L (12-78) 07/08/20 22:33 Alkaline Phosphatase 165 U/L (45-117) H 07/08/20 22:33 Total Protein 8.4 gm/dl (6.4-8.2) H 07/08/20 22:33 Albumin 2.2 gm/dl (3.4-5.0) L 07/08/20 22:33 Globulin 6.2 gm/dl (2.5-4.0) H 07/08/20 22:33 Albumin/Globulin Ratio 0.4 (0.9-2) L 07/08/20 22:33 Beta-Hydroxybutyric Acd 1.12 mg/dl (0.2-2.81) 07/08/20 22:33 Procalcitonin 0.14 ng/ml (0-0.5) 07/09/20 00:40 Specimen Hemolysis 07/08/20 23:17 SARS-CoV-2 Ag (Rapid) Negative (Negative) 07/09/20 02:10 Diagnostic Findings Chest x-ray no congestion: EKG as per my interpretation : Rate 90, A. fib, normal axis, T wave flattening lateral leads, low voltage Bilateral plain foot x-ray read pending
[2020-07-09] MEDS ORDERED: fentaNYL citrate 100 MCG/2 ML VIAL IV ONE (03:42)
[2020-07-09] MEDS ORDERED: SODIUM CHLORIDE 0.9% 500 ML IV ONE (04:16)
[2020-07-09] MEDS ORDERED: PIPERACILL/TAZOBAC CONSULT ACTIVE PRN (04:19)
[2020-07-09 04:25] LABS: Hematocrit (blood only) 35.7 % (42-52); Hemoglobin 12.1 g/dL (14.0-18.0); Reticulocyte % 1.2 % (0.5-2.0); Reticulocytes # 0.05 10^6/uL (0.02-0.10)
[2020-07-09] MEDS ORDERED: PIPERACILLIN/TAZOBACTAM 4.5 GM/120ML D5W ONE (04:29)
[2020-07-09] MEDS ORDERED: PIPERACILLIN/TAZOBACTAM 4.5 GM/120 ML BAG IV STA (04:37)
[2020-07-09 05:00] LABS: BUN Creatinine Ratio 33.9 (10-20); Calcium 8.1 mg/dl (8.5-10.1); Creatinine Clr Calc Pharmacy 44.1 ml/min; Est GFR (African American) 36.5; Est GFR (Non-African American) 31.5; Ferritin 381.1 ng/ml (8-388); Potassium 4.9 mmol/L (3.5-5.1)
[2020-07-09] MEDS ORDERED: INSULIN ASPART 100 UNITS/ML 3 ML PEN SC SCH ×2 (05:00→07:30)
[2020-07-09 05:35] LABS: Folate (Folic Acid) 15.1 ng/ml (>5.38)
[2020-07-09] MEDS ORDERED: ACETAMINOPHEN 325 MG TAB PO PRN (05:50)
[2020-07-09] MEDS ORDERED: PROMETHAZINE HCL 12.5 MG in SODIUM CHLORIDE 0.9% 50 ML IV PRN (05:50)
[2020-07-09] MEDS ORDERED: HYDROmorphone INJ 0.5 MG/0.5 ML SYR IV PRN (05:50)
[2020-07-09] MEDS: SODIUM CHLORIDE 0.9% 1000ML 1,000 ML IV SCH ×2 (06:34→10:23)
[2020-07-09 07:10] LABS: Estimated Average Glucose > 438 mg/dl; Hemoglobin A1C > 16.9 % (4.5-5.6)
--- NOTE | 2020-07-09 07:10 | CT Scan Report ---
CT tib/fib RT wo con CLINICAL HISTORY: Right lower extremity swelling. Evaluate for abscess. COMPARISON STUDY: No previous studies for comparison. TECHNIQUE: Axial images of the right tibia and fibula were obtained without IV contrast. Sagittal and coronal reconstructions were viewed. Automated exposure control was utilized for the study. A dose lowering technique was utilized adhering to the principles of ALARA. FINDINGS: No acute fracture of the right tibia or fibula is noted. Note is made of a old, healed frac ture of the distal diaphysis of the right fibula. Talar dome is intact. Note is made of soft tissue i rregularity of the anterior right lower leg overlying the right tibia at the junction of the middle a nd distal thirds. This suggests a wound. There is subcutaneous edema. This favors cellulitis. There i s no evidence for osteomyelitis. No fluid collection is identified to suggest an abscess although hina luation is suboptimal on this unenhanced examination. There are soft tissue calcifications which are chronic. There is vascular calcification. No mass is identified on this unenhanced examination. IMPRESSION: 1. Right lower leg subcutaneous edema with soft tissue irregularity of the anterior right lower leg s uggestive of a wound. Subcutaneous edema suggestive of cellulitis. No fluid collection to suggest abs cess. No evidence for osteomyelitis of the right tibia or fibula. 2. No acute fracture the right tibia or fibula. Old distal diaphyseal fracture of the right fibula. ACT 112: Negative or not required by law. Electronically signed by: Kam Humphreys M.D. 07/09/2020 7:09 AM
--- NOTE | 2020-07-09 07:35 | XRay Report ---
XR chest 1V portable CLINICAL HISTORY: SEPSIS COMPARISON STUDY: Chest radiograph April 30, 2015. FINDINGS: Lung volumes are normal. Lungs are clear. There is no pneumothorax or pleural effusion. Car diac size is stable. Mediastinal contours are normal. There is no evidence for pulmonary edema. IMPRESSION: No acute cardiopulmonary findings. ACT 112: Negative or not required by law. Electronically signed by: Kam Humphreys M.D. 07/09/2020 7:33 AM
--- NOTE | 2020-07-09 07:48 | XRay Report ---
XR foot LT 2V HISTORY: 64 years-old Male cellulitis patient presents with chronic bilateral foot pain with possibl e osteomyelitis COMPARISON: Right foot radiographs of same day TECHNIQUE: 2 views of the left foot FINDINGS: There is mild diffuse soft tissue prominence of the lower leg and foot. Mild multifocal osteoarthriti s. Arterial calcifications. Spurring of the calcaneus. No acute fracture, dislocation, opaque foreign body or osseous erosion to suggest acute osteomyelitis. IMPRESSION: Mild diffuse soft tissue swelling. No acute fracture, dislocation or osseous erosion to s uggest acute osteomyelitis. ACT 112: Negative or not required by law. The above report was generated using voice recognition software. It may contain grammatical, syntax o r spelling errors. Electronically signed by: Sravan Vieira M.D. 07/09/2020 7:47 AM
[2020-07-09] MEDS: DAPTOmycin 325 MG in SYRINGE 0 ML IV SCH (08:06)
[2020-07-09] MEDS: CYANOCOBALAMIN 500 MCG TABLET (VITAMIN B-12) PO SCH (08:07)
[2020-07-09] MEDS ORDERED: PHARMACY GLYCEMIC MGMT CONSULT PRN (08:13)
[2020-07-09] MEDS ORDERED: INSULIN GLARGINE SOLOSTAR 100 UNITS/ML 3 ML PEN SC ONE (08:15)
--- NOTE | 2020-07-09 08:16 | XRay Report ---
XR foot RT 2V CLINICAL HISTORY: cellulitis. Right foot swelling. COMPARISON STUDY: None. FINDINGS: No fracture or dislocation within the right foot. Lisfranc joint is intact. Mild diffuse so ft tissue swelling is noted. Small plantar and posterior calcaneal spurs. Vascular calcifications are present. No bony destruction to suggest osteomyelitis. Focal skin ulceration at the plantar surface of the heel. This measures 11 mm. IMPRESSION: 1. No radiographic evidence for osteomyelitis. 2. Diffuse soft tissue swelling. 3. An 11 mm focal skin ulceration at the plantar surface of the heel. ACT 112: Negative or not required by law. Electronically signed by: Wagner Horner M.D. 07/09/2020 8:14 AM
[2020-07-09] MEDS: INSULIN ASPART 100 UNITS/ML 3 ML PEN SC SCH ×4 (08:22→22:05)
[2020-07-09] MEDS ORDERED: INSULIN HUMAN REGULAR PER UNIT 8 UNITS in SYRINGE 7.92 ML IV ONE (08:30)
[2020-07-09] MEDS ORDERED: dilTIAZem HCL 180 MG CAPCR PO SCH ×2 (09:00)
[2020-07-09] MEDS ORDERED: METOPROLOL SUCC 25MG EXT REL TAB PO SCH (09:00)
[2020-07-09] MEDS ORDERED: METOPROLOL SUCC 50MG EXT REL TAB PO SCH (09:00)
[2020-07-09] MEDS: PIPERACILLIN/TAZOBACTAM 3.375 GM in DEXTROSE 5% 100 ML IV SCH ×2 (10:04→19:47)
[2020-07-09] MEDS: oxyCODONE HCL IR 5 MG TAB (IMMEDIATE RELEASE) PO PRN (10:57)
--- NOTE | 2020-07-09 11:31 | Pharmacy Report ---
Glycemic Control Consultation - Date of Service July 09, 2020 - Scope Scope: Glycemic Pharmacist consulted for glycemic control and to write orders per [facility] inpatient glycemic control protocol. - Objective Weight: 103.3 kg Accuchecks BSG (last 24hrs): 07/08/20 07/08/20 07/08/20 22:33 23:00 23:02 Glucose 645 H* POC Glucose > 600 H* > 600 H* 07/09/20 07/09/20 07/09/20 01:56 03:19 03:58 Glucose 174 H POC Glucose 404 H* 240 H 07/09/20 07/09/20 07/09/20 04:00 04:06 05:02 Glucose POC Glucose 165 H 174 H 254 H 07/09/20 07/09/20 07/09/20 05:50 07:33 07:33 Glucose POC Glucose 265 H 391 H* 367 H* Laboratory Data (last 24hrs): 07/08/20 07/09/20 22:33 03:58 Potassium 5.7 H 4.9 Carbon Dioxide 20 L 22 Anion Gap 11.0 4.0 Creatinine 2.80 H 2.12 H D Est Cr Clr Drug Dosing 33.4 44.1 Beta-Hydroxybutyric Acd 1.12 HbA1c: Hemoglobin A1c > 16.9 % (4.5-5.6) H 07/09/20 00:43 - Recent Pertinent Medications Outpatient Anti-diabetic Regimen: * Jardiance 25 mg daily * metformin 500 BID * Glipizide 5 mg BID * A1c = >16.9 % 07/09/20 The patient is currently receiving: * Basal insulin: Lantus 40 units every 24 hours * Correctional Insulin: Novolog Correction per scale ACHS Goal Range: Low 110 mg/dL - High 140 mg/dL Correction Factor: 25 mg/dL/unit * Prandial insulin: Per carb ratio of 1 unit per 25 grams CHO consumed * Oral Agents: Risk Factors for Insulin Resistance: * Infection: Zosyn * Diet: T2DM - Assessment & Plan Assessment & Plan: ASSESSMENT: * Mr Martin is a 64 y/o M with a PMH of uncontrolled T2DM not on his oral medications who presents with worsening lower extremity infections. Currently on Zosyn. * Presenting BSG was 645 mg/dL. Patient was started on an insulin infusion for a short period until BSG dropped to 174 mg/dL. Patient given 40 units of Lantus plus 4 units of Novolog. Once insulin infusion stopped, BSGs did increase again to mid-300s mg/dL. * Pharmacy consulted with morning BSGs. Hold oral medications. * Patient given 10 more units of Lantus to equal full weight-based stress of 3. Fix scale with weight-based doses of Lantus for tonight. Weight-based stress of 3 Novolog started with breakfast along with additional bolus of IV insulin. * Per milagro Mckeon to restart IV insulin if patient's BSGs not controllable. PLAN FOR INPATIENT GLYCEMIC CONTROL: * Lantus 10 units SQ x 1 then 10-25 units SQ tonight (10 units if BSG < 140 mg/dL; 20 units if BSG 140-180 mg/dL; 25 units if BSG > 180 mg/dL) * TIGHTENING correction factor to 15 mg/dl/unit * TIGHTENING carb ratio to 1 unit per 5 grams CHO consumed * Continuing goal range of Low 110 mg/dL - High 140 mg/dL * Please note that the plan above was derived based on current level of insulin resistance and hospital stress. These recommendations are appropriate for inpatient admission only. Plan of care upon discharge will need to be reassessed to avoid potential outpatient hypo/hyperglycemia. Thank you.
[2020-07-09] MEDS ORDERED: GADOBUTROL 65ML VIAL IV ONE (12:53)
--- NOTE | 2020-07-09 13:26 | Magnetic Resonance Report ---
MR lower leg RT wo/w con CLINICAL HISTORY: Right lower extremity swelling. Open sores. Evaluate for osteomyelitis. COMPARISON STUDY: CT scan performed 07/09/2020 FINDINGS: Images were performed in the axial, sagittal, and coronal planes. Images were acquired befo re and after the administration of 10 cc of intravenous Gadavist There are no foci of marrow edema to indicate acute osteomyelitis. There are no fluid collections to indicate an abscess. There is mild cutaneous edema. There is fatty atrophy of the leg muscles most pronounced involving the gastrocnemius. There is mild edema within several lower leg muscles, most pronounced involving the flexor digitorum longus and flexor hallucis longus. This is a nonspecific finding with a wide differential including m uscle strain, denervation, and myositis/diabetic myositis. IMPRESSION: 1. No evidence of osteomyelitis 2. No evidence of abscess 3. Fatty atrophy of the gastrocnemius 4. Mild nonspecific edema several lower leg muscles, most pronounced involving the flexor digitorum l ongus and flexor hallucis longus. ACT 112: Negative or not required by law. Electronically signed by: Rios Munson M.D. 07/09/2020 1:25 PM
[2020-07-09] MEDS: CARBOHYDRATES FOR HYPOGLYCEMIA PO PRN ×2 (13:41→13:56)
--- NOTE | 2020-07-09 13:54 | Magnetic Resonance Report ---
MR lower leg LT wo/w con CLINICAL HISTORY: Chronic left lower extremity wounds. Evaluate for osteomyelitis. COMPARISON STUDY: None. TECHNIQUE: Utilizing a 1.5 Iris magnet and dedicated coil, multiplanar, multiecho imaging of the lef t lower leg was performed pre and postcontrast administration. Intravenous injection of 10 cc of Gada vist was uneventful. FINDINGS: There is no marrow edema within the left tibia. There is a small focus of increased T2 sign al and enhancement within the medullary canal of the left fibula at the level the mid shaft. This is probably related to a vessel and is of doubtful significance. There is no fracture within the left ti juan or fibula. There is no evidence for osteomyelitis. There is extensive atrophy of the left lower l eg musculature. Note is made of mild edema and enhancement within the flexor muscles which is nonspec ific but could be related to denervation. There is no fluid collection to suggest an abscess. There i s moderate subcutaneous edema. There is a small amount of fluid along the lateral aspect of the exten sor muscles. There is no rim enhancement. Achilles tendon is intact. IMPRESSION: 1. No evidence for osteomyelitis within the left tibia or fibula. 2. Moderate subcutaneous edema of the left lower leg. 3. Extensive left lower leg muscular atrophy. Mild edema and enhancement within several muscles which is nonspecific but may also be related to denervation. ACT 112: Negative or not required by law. Electronically signed by: Kam Humphreys M.D. 07/09/2020 1:53 PM
--- NOTE | 2020-07-09 14:47 | Electrocardiogram Report ---
Test Reason : Blood Pressure : / mmHG Vent. Rate : 092 BPM Atrial Rate : 092 BPM P-R Int : 000 ms QRS Dur : 088 ms QT Int : 332 ms P-R-T Axes : 000 009 053 degrees QTc Int : 410 ms Poor data quality, interpretation may be adversely affected Normal sinus rhythm with frequent Premature atrial complexes Low voltage QRS Septal infarct Abnormal ECG When compared with ECG of 25-JAN-2018 08:00, Septal infarct is now Present Confirmed by Dayday Momin ([id number]) on 07/09/2020 2:47:30 PM Referred By: REFERRED SELF Confirmed By:Dayday Momin
--- NOTE | 2020-07-09 14:48 | Electrocardiogram Report ---
Test Reason : Blood Pressure : / mmHG Vent. Rate : 090 BPM Atrial Rate : 090 BPM P-R Int : 164 ms QRS Dur : 078 ms QT Int : 340 ms P-R-T Axes : 086 011 051 degrees QTc Int : 415 ms Poor data quality, interpretation may be adversely affected Sinus rhythm with Premature atrial complexes Low voltage QRS Septal infarct (cited on or before 08-JUL-2020) Inferior injury pattern ACUTE MO / STEMI Abnormal ECG When compared with ECG of 08-JUL-2020 22:38, (unconfirmed) No significant change Confirmed by Dayday Momin ([id number]) on 07/09/2020 2:47:53 PM Referred By: REFERRED SELF Confirmed By:Dayday Momin
--- NOTE | 2020-07-09 16:06 | Ultrasound Report ---
US arterial duplex LE BI CLINICAL HISTORY: non healing lower extremity wound r/o peripheral arterial disease COMPARISON STUDY: None. FINDINGS: The ankle brachial indices were unable to be performed due to the patient's lower leg wound s. Minimal scattered calcified plaque seen throughout the bilateral lower extremity are material syst ems. Normal triphasic to biphasic waveforms and velocities identified. No areas of arterial occlusion identified. IMPRESSION: No significant stenosis or occlusion within the bilateral lower extremity arterial syste ms. ACT 112: Negative or not required by law. Electronically signed by: Wagner oHrner M.D. 07/09/2020 4:04 PM
[2020-07-09 19:12] LABS: Prothrombin Time 56.9 Seconds (9.0-12.0)
[2020-07-09 19:18] LABS: INR 5.9 (0.9-1.1)
[2020-07-09 19:19] LABS: BUN Creatinine Ratio 26.2 (10-20); Calcium 8.4 mg/dl (8.5-10.1); Creatinine Clr Calc Pharmacy 37.9 ml/min; Est GFR (African American) 30.5; Est GFR (Non-African American) 26.3; Potassium 5.8 mmol/L (3.5-5.1)
[2020-07-09] MEDS ORDERED: INSULIN GLARGINE SOLOSTAR 100 UNITS/ML 3 ML PEN SC SCH (21:00)
[2020-07-09] MEDS ORDERED: SODIUM POLYSTYRENE SULFONATE 15G/60ML SUSP PO STA (21:15)
[2020-07-09 21:29] LABS: Appearance Urine Clear (Clear); Bilirubin Urine Negative (Negative); Blood Urine Negative (Negative); Color Urine Yellow; Glucose Urine UA 3+ (Negative); Ketones Urine Negative (Negative); Leukocyte Esterase Urine Negative (Negative); Nitrite Urine Negative (Negative); Protein Urine Negative (Negative); Specific Gravity Urine 1.015 (1.000-1.030); Urobilinogen Urine Negative (Negative)
[2020-07-09] MEDS ORDERED: SODIUM CHLORIDE 0.9% 1000ML 1,000 ML IV SCH (21:45)
[2020-07-10] MEDS: INSULIN ASPART 100 UNITS/ML 3 ML PEN SC SCH ×6 (00:10→20:24)
[2020-07-10 00:35] LABS: BUN Creatinine Ratio 28.8 (10-20); Calcium 8.6 mg/dl (8.5-10.1); Creatinine Clr Calc Pharmacy 38.8 ml/min; Est GFR (African American) 31.4; Est GFR (Non-African American) 27.1
[2020-07-10] MEDS ORDERED: METOPROLOL TARTRATE 25 MG TAB PO SCH (01:20)
[2020-07-10] MEDS: PIPERACILLIN/TAZOBACTAM 3.375 GM in DEXTROSE 5% 100 ML IV SCH ×3 (01:38→17:40)
[2020-07-10] MEDS ORDERED: DIGOXIN 250 MCG in SYRINGE 9 ML IV STA (05:38)
[2020-07-10] MEDS ORDERED: METOPROLOL SUCC 25MG EXT REL TAB PO SCH (05:40)
--- NOTE | 2020-07-10 07:19 | Hospitalist Progress Note ---
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 Subcutaneous edema suggestive of cellulitis. No fluid collection to suggest abscess. No evidence for osteomyelitis of the right tibia or fibula. 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 Secondary to kidney disease, stool FOBT negative - Anemia work-up DVT prophylaxis. Coumadin INR goal between 2 and 3 Full code Disposition pending PT/OT eval may need Rehab or SNF Admission and Anticipated Discharge Date Admission Date: July 09, 2020 Subjective ff up for bilateral lower extremity infected wounds, uncontrolled DM, etc seen resting in bed, sitting up, alert, awake, in good spirits reports minimal pain over LE denies fever/chills, nausea, headache, chest pain, dyspnea, palpitations no other symptoms Review of Systems Review of Systems: All systems reviewed & are unremarkable except as noted in Subjective Physical Exam Physical Exam: General- oriented x 3, not in distress, speaks in sentences with no effort or accessory muscle use Head- atraumatic Eyes- PERRL, EOMI, anicteric ENT- oropharynx clear Neck- supple, no JVD, no adenopathy, no thyromegaly; carotids +2/2, no bruits appreciated Lungs- clear to auscultation bilaterally, no rales/wheezes Heart- normal rate, regular rhythm; no murmur, no gallop, no rub appreciated Abdomen- normal bowel sounds, nondistended, soft, nontender, no masses or hepatosplenomegaly Extremities- Bilateral lower ext: (+) open wounds on bilateral anterior lower leg and bilateral feet - toes, base of the toes with edema, seepage, erythema, foul smelling odor Neuro- alert, oriented x 3; CN 2-12 grossly intact; motor 5/5 bilaterally;sensation 100% on all extremities; no other gross focal neurologic deficits Skin- warm & dry Results & Data Results & Data ([facility]) Vital Signs (Past 12 Hours) Vital Signs Temp Pulse Pulse Resp BP Pulse Ox 07/10/20 06:26 105 H 07/10/20 04:00 37.1 C 126 H 18 110/70 96 07/10/20 00:48 105 H 07/09/20 23:00 36.9 C 110 H 18 104/71 99 Laboratory Results all noted and reviewed
[2020-07-10] MEDS: CYANOCOBALAMIN 500 MCG TABLET (VITAMIN B-12) PO SCH (07:26)
[2020-07-10] MEDS: DAPTOmycin 325 MG in SYRINGE 0 ML IV SCH (07:26)
[2020-07-10 07:32] LABS: Basophils # (auto) 0.02 K/uL (0-0.2); Basophils % (auto) 0.3 %; Eosinophils # (auto) 0.06 K/uL (0-0.5); Eosinophils % (auto) 0.8 %; Hemoglobin 10.1 g/dL (14.0-18.0); Immature Granulocytes # (auto) 0.02 K/uL (0.00-0.02); Immature Granulocytes % (auto) 0.3 %; Lymphocytes # (auto) 1.33 K/uL (1.2-3.4); Lymphocytes % (auto) 17.8 %; Mean Corpuscular Hemoglobin 28.2 pg (25-34); Mean Corpuscular Hgb Conc 33.7 g/dL (32-36); Mean Corpuscular Volume 83.8 fL (80-100); Mean Platelet Volume 10.8 fL (7.4-10.4); Monocytes % (auto) 13.4 %; Neutrophils # (auto) 5.06 K/uL (1.4-6.5); Neutrophils % (auto) 67.4 %; Platelet Count 226 K/uL (130-400); RDW Coefficient of Variation 14.5 % (11.5-14.5); Red Blood Count 3.58 M/uL (4.7-6.1); White Blood Count 7.49 K/uL (4.8-10.8)
[2020-07-10 07:46] LABS: INR 3.4 (0.9-1.1); Prothrombin Time 33.7 Seconds (9.0-12.0)
[2020-07-10 08:01] LABS: Calcium 8.4 mg/dl (8.5-10.1); Est GFR (African American) 34.3; Est GFR (Non-African American) 29.6; Magnesium 2.1 mg/dl (1.8-2.4); Potassium 4.7 mmol/L (3.5-5.1)
[2020-07-10] MEDS ORDERED: INSULIN GLARGINE SOLOSTAR 100 UNITS/ML 3 ML PEN SC SCH ×4 (09:00)
--- NOTE | 2020-07-10 12:06 | Pharmacy Report ---
Glycemic Control Progress Note - Date of Service July 10, 2020 - Scope Glycemic Pharmacist consulted for glycemic control to write orders per [facility] inpatient glycemic control protocol. - Objective Accuchecks BSG(last 24 hours):: 07/09/20 07/09/20 07/09/20 13:39 13:56 14:10 Glucose POC Glucose 55 L* 61 L* 87 07/09/20 07/09/20 07/09/20 16:17 18:36 20:21 Glucose 201 H POC Glucose 171 H 157 H 07/10/20 07/10/20 07/10/20 00:00 00:03 03:52 Glucose 183 H POC Glucose 188 H 201 H 07/10/20 07/10/20 07/10/20 07:01 07:39 11:20 Glucose 182 H POC Glucose 192 H 319 H* 07/10/20 11:21 Glucose POC Glucose 318 H* HbA1c:: Hemoglobin A1c > 16.9 % (4.5-5.6) H 07/09/20 00:43 - Recent Pertinent Medications The patient is currently receiving: * Basal insulin: Lantus 50 units every 24 hours * Correctional Insulin: Novolog Correction per scale [facility] Goal Range: Low 110 mg/dL - High 140 mg/dL Correction Factor: 18 mg/dL/unit * Prandial insulin: Per carb ratio of 1 unit per 6 grams CHO consumed - Outpatient Anti-Diabetic Meds Jardiance 25 mg daily metformin 500 mg BID Glipizide 5 mg BID - Assessment & Plan ASSESSMENT: * See progress note from 07/09/20 for more background info, in short: * Pt receiving SQ basal bolus insulin regimen for hyperglycemia secondary to baseline DM (outpatient regimen on hold). Patient currently being treated for cellulitis (Zosyn and daptomycin) * Patient is currently receiving an average of 102 units of insulin per day * 50 units of basal insulin * 52 units of prandial/correctional insulin * BSGs ranging 55 - 307 mg/dl over the past 24hrs * Changes needed to insulin regimen: * AM Fasting BSG = 192 mg/dl. This in goal range for patient based on inpatient targets and co-morbidities. Did lower the basal dose to 45 units today since patient did have low BSG yesterday. Will set scale for tomorrow to allow for autotitration. * Post-prandial BSGs were controlled yesterday but jumped today at lunch. Tighten to weight-based stress of 3 Novolog. * Total daily dose = ~100 units. Adjusted insulin. This appears appropriate since it is 1 unit/kg but expect will require decrease at some point. PLAN FOR INPATIENT GLYCEMIC CONTROL: * DECREASING Lantus to 45 units SQ daily then start scale tomorrow with doses ranging 40-50 units daily * TIGHTENING correction factor to 15 mg/dl/unit * TIGHTENING carb ratio to 1 unit per 5 grams CHO consumed * Continuing goal range of Low 110 mg/dL - High 140 mg/dL * Please note that the plan above was derived based on current level of insulin resistance and hospital stress. These recommendations are appropriate for inpatient admission only. Plan of care upon discharge will need to be reassessed to avoid potential outpatient hypo/hyperglycemia. Thank you.
--- NOTE | 2020-07-10 13:49 | Electrocardiogram Report ---
Test Reason : Blood Pressure : / mmHG Vent. Rate : 102 BPM Atrial Rate : 119 BPM P-R Int : 000 ms QRS Dur : 082 ms QT Int : 330 ms P-R-T Axes : 000 007 048 degrees QTc Int : 430 ms Poor data quality, interpretation may be adversely affected Atrial fibrillation with rapid ventricular response Low voltage QRS Abnormal ECG When compared with ECG of 08-JUL-2020 22:43, Atrial fibrillation has replaced Sinus rhythm Criteria for Septal infarct are no longer Present ST no longer elevated in Inferior leads Confirmed by Dayday Momin ([id number]) on 07/10/2020 1:48:49 PM Referred By: REFERRED SELF Confirmed By:Dayday Momin
--- NOTE | 2020-07-10 14:46 | Wound Consultation ---
Date of Consultation July 10, 2020 Assessment & Plan (1) Venous stasis ulcers of both lower extremities: This is a 64-year-old male with bilateral venous stasis ulcers and secondary cellulitis. Wound cultures are pending and patient is on empiric daptomycin and Zosyn. No debridement was done as patient's INR was 3.34 and wounds were relatively clean. Wounds were redressed with Aquacel Ag, ultra sorb pads and a Coban light wrap. We will check pulse ox 10 to 15 minutes after placing the wraps. Patient's wraps will be changed either or Wednesday depending on drainage. We will continue to follow. Please call with any questions. (2) Infected wound: History of Present Illness Reason for Consultation: Bilateral leg wounds Attending Physician: Shalonda Lee MD History of Present Illness This is a 64-year-old male with a medical history significant for chronic systolic heart failure, atrial flutter on Coumadin, hypertension, hyperlipidemia, history of CVA, type 2 diabetes and CKD and was admitted with bilateral lower extremity cellulitis. Patient states that the wounds been there for about 1 month. Patient states he has had to change his socks twice a day. They have not improved and his daughter made him come to the emergency department. He is currently on vancomycin and Zosyn. Allergies Allergy/AdvReac Type Severity Reaction Status Date / Time No Known Allergies Allergy Unverified 07/09/20 00:34 Home Medications Medication Instructions Recorded Confirmed Type atorvastatin 10 mg PO DAILY 07/09/20 07/09/20 History benazepril 40 mg PO BID 07/09/20 07/09/20 History cyanocobalamin (vitamin B-12) 1,000 mcg PO DAILY 07/09/20 07/09/20 History diltiazem HCl [Cardizem CD] 180 mg PO DAILY 07/09/20 07/09/20 History empagliflozin [Jardiance] 25 mg PO DAILY 07/09/20 07/09/20 History glipizide 5 mg PO BID 07/09/20 07/09/20 History hydrochlorothiazide 50 mg PO DAILY 07/09/20 07/09/20 History metformin 500 mg PO BID 07/09/20 07/09/20 History metoprolol succinate 100 mg PO BID 07/09/20 07/09/20 History warfarin 5 mg PO DAILY 07/09/20 07/09/20 History Patient History Social History Smoking Status: Unknown if ever smoked Second Hand Exposure: No; Do You Dip or Chew Tobacco: No; Tobacco Cessation Education Requested by Patient: No Hx Alcohol Use: No Hx Substance Use: No Preferred Language: Italian Communication Ability: Effective Dry Room Operator Required: No Beliefs That Will Affect Care: None Current Living Situation: Family Other Information That Helps Us Care for You: No Feels Safe at Home: Yes Safety Concerns: Feels Safe At This Time Assistive Devices: None Review of Systems Review of Systems: All systems reviewed & are unremarkable except as noted in HPI & below Physical Exam Physical Exam: Temp Pulse Resp BP Pulse Ox 37.6 C H 106 H 16 90/56 L 97 07/10/20 07:54 07/10/20 08:00 07/10/20 07:54 07/10/20 07:54 07/10/20 07:54 Constitutional: WD/WN, vitals as above Eyes: PERRL, conjunctivae normal, anicteric sclerae Skin: Wound measuring as recorded in nursing documentation. Wounds are covered with fibrin and slough. Periwound is erythematous. There is large amount of drainage and foul odor. Neurologic: awake; not confused Psychiatric: A+Ox3, euthymic affect Results & Data ([place]) Vital Signs (Past 12 Hours) Vital Signs Temp Pulse Pulse Resp BP Pulse Ox 07/10/20 08:00 106 H 07/10/20 07:54 37.6 C H 105 H 16 90/56 L 97 07/10/20 06:26 105 H 07/10/20 04:00 37.1 C 126 H 18 110/70 96 Laboratory Results 07/10/20 07/10/20 07/10/20 Range/Units 11:21 11:20 07:39 WBC (4.8-10.8) K/uL RBC (4.7-6.1) M/uL Hgb (14.0-18.0) g/dL Hct (42-52) % MCV (80-100) fL MCH (25-34) pg MCHC (32-36) g/dL RDW Std Deviation (36.4-46.3) fL RDW Coeff of Jamal (11.5-14.5) % Plt Count (130-400) K/uL MPV (7.4-10.4) fL Immature Gran % (Auto) % Neut % (Auto) % Lymph % (Auto) % Jay % (Auto) % Eos % (Auto) % Baso % (Auto) % Neut # (Auto) (1.4-6.5) K/uL Lymph # (Auto) (1.2-3.4) K/uL Jay # (Auto) (0.11-0.59) K/uL Eos # (Auto) (0-0.5) K/uL Baso # (Auto) (0-0.2) K/uL Immature Gran # (Auto) (0.00-0.02) K/uL PT (9.0-12.0) Seconds INR (0.9-1.1) Sodium (136-145) mmol/L Potassium (3.5-5.1) mmol/L Chloride (98-107) mmol/L Carbon Dioxide (21-32) mmol/L Anion Gap (3-11) BUN (7-18) mg/dl Creatinine (0.6-1.4) mg/dl Est Cr Clr Drug Dosing ml/min Est GFR ( Amer) Est GFR (Non-Af Amer) BUN/Creatinine Ratio (10-20) Glucose (70-99) mg/dl POC Glucose 318 H* 319 H* 192 H (70-99) mg/dl Lactate (0.4-2.0) mmol/L Calcium (8.5-10.1) mg/dl Magnesium (1.8-2.4) mg/dl Urine Color Urine Appearance (Clear) Urine pH (4.5-7.5) Ur Specific [place] (1.000-1.030) Urine Protein (Negative) Urine Glucose (UA) (Negative) Urine Ketones (Negative) Urine Blood (Negative) Urine Nitrite (Negative) Urine Bilirubin (Negative) Urine Urobilinogen (Negative) Ur Leukocyte Esterase (Negative) 07/10/20 07/10/20 07/10/20 Range/Units 07:01 07:01 07:01 WBC 7.49 (4.8-10.8) K/uL RBC 3.58 L (4.7-6.1) M/uL Hgb 10.1 L (14.0-18.0) g/dL Hct 30.0 L (42-52) % MCV 83.8 (80-100) fL MCH 28.2 (25-34) pg MCHC 33.7 (32-36) g/dL RDW Std Deviation 45.0 (36.4-46.3) fL RDW Coeff of Jamal 14.5 (11.5-14.5) % Plt Count 226 (130-400) K/uL MPV 10.8 H (7.4-10.4) fL Immature Gran % (Auto) 0.3 % Neut % (Auto) 67.4 % Lymph % (Auto) 17.8 % Jay % (Auto) 13.4 % Eos % (Auto) 0.8 % Baso % (Auto) 0.3 % Neut # (Auto) 5.06 (1.4-6.5) K/uL Lymph # (Auto) 1.33 (1.2-3.4) K/uL Jay # (Auto) 1.00 H (0.11-0.59) K/uL Eos # (Auto) 0.06 (0-0.5) K/uL Baso # (Auto) 0.02 (0-0.2) K/uL Immature Gran # (Auto) 0.02 (0.00-0.02) K/uL PT 33.7 H (9.0-12.0) Seconds INR 3.4 H (0.9-1.1) Sodium 133 L (136-145) mmol/L Potassium 4.7 (3.5-5.1) mmol/L Chloride 106 (98-107) mmol/L Carbon Dioxide 20 L (21-32) mmol/L Anion Gap 7.0 (3-11) BUN 60 H (7-18) mg/dl Creatinine 2.23 H (0.6-1.4) mg/dl Est Cr Clr Drug Dosing 42.0 ml/min Est GFR ( Amer) 34.3 Est GFR (Non-Af Amer) 29.6 BUN/Creatinine Ratio 27.0 H (10-20) Glucose 182 H (70-99) mg/dl POC Glucose (70-99) mg/dl Lactate (0.4-2.0) mmol/L Calcium 8.4 L (8.5-10.1) mg/dl Magnesium 2.1 (1.8-2.4) mg/dl Urine Color Urine Appearance (Clear) Urine pH (4.5-7.5) Ur Specific [place] (1.000-1.030) Urine Protein (Negative) Urine Glucose (UA) (Negative) Urine Ketones (Negative) Urine Blood (Negative) Urine Nitrite (Negative) Urine Bilirubin (Negative) Urine Urobilinogen (Negative) Ur Leukocyte Esterase (Negative) 07/10/20 07/10/20 07/10/20 Range/Units 03:52 00:03 00:00 WBC (4.8-10.8) K/uL RBC (4.7-6.1) M/uL Hgb (14.0-18.0) g/dL Hct (42-52) % MCV (80-100) fL MCH (25-34) pg MCHC (32-36) g/dL RDW Std Deviation (36.4-46.3) fL RDW Coeff of Jamal (11.5-14.5) % Plt Count (130-400) K/uL MPV (7.4-10.4) fL Immature Gran % (Auto) % Neut % (Auto) % Lymph % (Auto) % Jay % (Auto) % Eos % (Auto) % Baso % (Auto) % Neut # (Auto) (1.4-6.5) K/uL Lymph # (Auto) (1.2-3.4) K/uL Jay # (Auto) (0.11-0.59) K/uL Eos # (Auto) (0-0.5) K/uL Baso # (Auto) (0-0.2) K/uL Immature Gran # (Auto) (0.00-0.02) K/uL PT (9.0-12.0) Seconds INR (0.9-1.1) Sodium (136-145) mmol/L Potassium (3.5-5.1) mmol/L Chloride (98-107) mmol/L Carbon Dioxide (21-32) mmol/L Anion Gap (3-11) BUN (7-18) mg/dl Creatinine (0.6-1.4) mg/dl Est Cr Clr Drug Dosing ml/min Est GFR ( Amer) Est GFR (Non-Af Amer) BUN/Creatinine Ratio (10-20) Glucose (70-99) mg/dl POC Glucose 201 H 188 H (70-99) mg/dl Lactate 0.9 (0.4-2.0) mmol/L Calcium (8.5-10.1) mg/dl Magnesium (1.8-2.4) mg/dl Urine Color Urine Appearance (Clear) Urine pH (4.5-7.5) Ur Specific [place] (1.000-1.030) Urine Protein (Negative) Urine Glucose (UA) (Negative) Urine Ketones (Negative) Urine Blood (Negative) Urine Nitrite (Negative) Urine Bilirubin (Negative) Urine Urobilinogen (Negative) Ur Leukocyte Esterase (Negative) 07/10/20 07/09/20 07/09/20 Range/Units 00:00 Unknown 20:21 WBC (4.8-10.8) K/uL RBC (4.7-6.1) M/uL Hgb (14.0-18.0) g/dL Hct (42-52) % MCV (80-100) fL MCH (25-34) pg MCHC (32-36) g/dL RDW Std Deviation (36.4-46.3) fL RDW Coeff of Jamal (11.5-14.5) % Plt Count (130-400) K/uL MPV (7.4-10.4) fL Immature Gran % (Auto) % Neut % (Auto) % Lymph % (Auto) % Jay % (Auto) % Eos % (Auto) % Baso % (Auto) % Neut # (Auto) (1.4-6.5) K/uL Lymph # (Auto) (1.2-3.4) K/uL Jay # (Auto) (0.11-0.59) K/uL Eos # (Auto) (0-0.5) K/uL Baso # (Auto) (0-0.2) K/uL Immature Gran # (Auto) (0.00-0.02) K/uL PT (9.0-12.0) Seconds INR (0.9-1.1) Sodium 131 L (136-145) mmol/L Potassium 5.0 (3.5-5.1) mmol/L Chloride 104 (98-107) mmol/L Carbon Dioxide 20 L (21-32) mmol/L Anion Gap 7.0 (3-11) BUN 69 H (7-18) mg/dl Creatinine 2.40 H (0.6-1.4) mg/dl Est Cr Clr Drug Dosing 38.8 ml/min Est GFR ( Amer) 31.4 Est GFR (Non-Af Amer) 27.1 BUN/Creatinine Ratio 28.8 H (10-20) Glucose 183 H (70-99) mg/dl POC Glucose 157 H (70-99) mg/dl Lactate (0.4-2.0) mmol/L Calcium 8.6 (8.5-10.1) mg/dl Magnesium (1.8-2.4) mg/dl Urine Color Yellow Urine Appearance Clear (Clear) Urine pH 5.0 (4.5-7.5) Ur Specific [place] 1.015 (1.000-1.030) Urine Protein Negative (Negative) Urine Glucose (UA) 3+ H (Negative) Urine Ketones Negative (Negative) Urine Blood Negative (Negative) Urine Nitrite Negative (Negative) Urine Bilirubin Negative (Negative) Urine Urobilinogen Negative (Negative) Ur Leukocyte Esterase Negative (Negative) 07/09/20 07/09/20 07/09/20 Range/Units 18:36 18:36 16:17 WBC (4.8-10.8) K/uL RBC (4.7-6.1) M/uL Hgb (14.0-18.0) g/dL Hct (42-52) % MCV (80-100) fL MCH (25-34) pg MCHC (32-36) g/dL RDW Std Deviation (36.4-46.3) fL RDW Coeff of Jamal (11.5-14.5) % Plt Count (130-400) K/uL MPV (7.4-10.4) fL Immature Gran % (Auto) % Neut % (Auto) % Lymph % (Auto) % Jay % (Auto) % Eos % (Auto) % Baso % (Auto) % Neut # (Auto) (1.4-6.5) K/uL Lymph # (Auto) (1.2-3.4) K/uL Jay # (Auto) (0.11-0.59) K/uL Eos # (Auto) (0-0.5) K/uL Baso # (Auto) (0-0.2) K/uL Immature Gran # (Auto) (0.00-0.02) K/uL PT 56.9 H (9.0-12.0) Seconds INR 5.9 H* (0.9-1.1) Sodium 129 L (136-145) mmol/L Potassium 5.8 H D (3.5-5.1) mmol/L Chloride 102 (98-107) mmol/L Carbon Dioxide 22 (21-32) mmol/L Anion Gap 5.0 (3-11) BUN 65 H (7-18) mg/dl Creatinine 2.46 H D (0.6-1.4) mg/dl Est Cr Clr Drug Dosing 37.9 ml/min Est GFR ( Amer) 30.5 Est GFR (Non-Af Amer) 26.3 BUN/Creatinine Ratio 26.2 H (10-20) Glucose 201 H (70-99) mg/dl POC Glucose 171 H (70-99) mg/dl Lactate (0.4-2.0) mmol/L Calcium 8.4 L (8.5-10.1) mg/dl Magnesium (1.8-2.4) mg/dl Urine Color Urine Appearance (Clear) Urine pH (4.5-7.5) Ur Specific [place] (1.000-1.030) Urine Protein (Negative) Urine Glucose (UA) (Negative) Urine Ketones (Negative) Urine Blood (Negative) Urine Nitrite (Negative) Urine Bilirubin (Negative) Urine Urobilinogen (Negative) Ur Leukocyte Esterase (Negative) Diagnostic Findings us b/l LE: No significant stenosis or occlusion within the bilateral lower extremity arterial systems. MRI RLE: IMPRESSION: 1. No evidence of osteomyelitis 2. No evidence of abscess 3. Fatty atrophy of the gastrocnemius 4. Mild nonspecific edema several lower leg muscles, most pronounced involving the flexor digitorum longus and flexor hallucis longus. MRI LLE:IMPRESSION: 1. No evidence for osteomyelitis within the left tibia or fibula. 2. Moderate subcutaneous edema of the left lower leg. 3. Extensive left lower leg muscular atrophy. Mild edema and enhancement within several muscles which is nonspecific but may also be related to denervation. PG Care Time/CCT Total # of Minutes Spent Total Time Spent with Patient: Total time spent is greater than 50% in coordination of care (as documented) at patient's floor/unit and/or counseling patient: Coding Level of Care Code 34129 Inpt Consult Level 3 Diagnoses Venous stasis ulcers of both lower extremities I83.019; I83.029; L97.919; L97.929 Infected wound T14.8XXA; L08.9
--- NOTE | 2020-07-10 19:10 | Hospitalist Progress Note ---
Date of Service July 10, 2020 Assessment & Plan (1) Infected wound: (1) Type 2 diabetes w HHS - treated with aggressive IV NSS boluses and IV insulin gtt presented with lower ext Cellulitis, Hyperosmolar hyperglycemic state (HHS), VICKEY (acute kidney injury), serum glucose 645, Na 122, BUN 7/, Creatinine 2.80, GFR 22.5, Serum Lactate 3.0, Mg 2.5, hx of mediation non compliance -- a1c 16 -- placed on Insulin drip, transitioned to SC insulin -- Pharm Glycemic control appreciated Emergency Detail Driver consulted Bilateral LE cellulitis Cellulitis of bilateral lower extremities in setting of diabetic leg ulcerations treated with IV Vancomycin, IV Zosyn, IV Daptomycin, and WOCN consult 64-year-old male who has been noted to have worsening bilateral lower extremity leg wounds-has chronic wounds for > 1 month - does not meet sepsis criteria - CT LE: Right lower leg subcutaneous edema with soft tissue irregularity of the anterior right lower leg suggestive of a wound. Subcutaneous edema suggestive of cellulitis. No fluid collection to suggest abscess. No evidence for osteomyelitis of the right tibia or fibula.-follow wound care consulte pt will need to be followed at wound clinic on discharge - MRI LE: no osteomyelitis - Arterial Doppler: no stenosis - Cultures pending - Dapto + Zosyn 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 due to above - hold diuretics - gentle IV fluids in light of CHF chronic systolic heart failure (EF 45% 2018), patient is on the dry side diuretics on hold for Acute renal failure gentle Iv fluids atrial flutter on Coumadin, NSR, INR supratherapeutic - given Vit k 2.5mg po on admission INR 3.4 today , hold coumadin - monitor INR hypertension, BP on the lower side - hold diuretics borderline tachycardic : Metoprolol dose reduced to 25 mg daily with holding parameters hyperlipidemia on statin Rx history CVA as per records New onset anemia ? Secondary to kidney disease, stool FOBT negative - Anemia work-up DVT prophylaxis. INR elevated Full code Disposition pending PT/OT eval may need Rehab or SNF Admission and Anticipated Discharge Date Admission Date: July 09, 2020 Subjective says feels well , no complain of pain on lower ext/feet no fever or chills no cough or SOB Review of Systems Review of Systems: All systems reviewed & are unremarkable except as noted in HPI & below Constitutional: no fever and no chills Physical Exam Constitutional: WD/WN, vitals as above Eyes: PERRL, conjunctivae normal, anicteric sclerae ENMT: external ear and nose normal, oropharynx normal Neck: trachea midline, no thyromegaly Respiratory: normal respiratory effort, lungs clear to auscultation Cardiovascular: Rate/Rhythm: regular rate and regular rhythm Gastrointestinal (Abdomen): normal bowel sounds, soft, nontender, no hepatosplenomegaly Musculoskeletal: Extremities: + foot abnormality (open wounds /right > left ) Bilateral Bilateral lower ext: (+) open wounds on bilateral anterior lower leg and bilateral feet - toes, base of the toes with edema, seepage, erythema, foul smelling odor Neurologic: PERRL, EOMI, accommodation nl, no face palsy, no dysarthria Psychiatric: A+Ox3, euthymic affect Results & Data Results & Data ([facility]) Vital Signs (Past 12 Hours) Vital Signs Temp Pulse Pulse Resp BP Pulse Ox 07/10/20 16:00 106 H 07/10/20 15:05 36.7 C 105 H 16 95/60 L 98 07/10/20 08:00 106 H 07/10/20 07:54 37.6 C H 105 H 16 90/56 L 97
[2020-07-11] MEDS: PIPERACILLIN/TAZOBACTAM 3.375 GM in DEXTROSE 5% 100 ML IV SCH ×3 (00:52→17:17)
[2020-07-11 05:55] LABS: Basophils # (auto) 0.01 K/uL (0-0.2); Basophils % (auto) 0.1 %; Eosinophils # (auto) 0.09 K/uL (0-0.5); Eosinophils % (auto) 1.3 %; Hematocrit (blood only) 30.5 % (42-52); Hemoglobin 10.1 g/dL (14.0-18.0); Immature Granulocytes # (auto) 0.03 K/uL (0.00-0.02); Immature Granulocytes % (auto) 0.4 %; Lymphocytes # (auto) 1.56 K/uL (1.2-3.4); Lymphocytes % (auto) 22.4 %; Mean Corpuscular Hemoglobin 28.1 pg (25-34); Mean Corpuscular Hgb Conc 33.1 g/dL (32-36); Mean Platelet Volume 10.7 fL (7.4-10.4); Monocytes # (auto) 1.03 K/uL (0.11-0.59); Monocytes % (auto) 14.8 %; Neutrophils # (auto) 4.25 K/uL (1.4-6.5); Platelet Count 228 K/uL (130-400); RDW Coefficient of Variation 14.7 % (11.5-14.5); Red Blood Count 3.59 M/uL (4.7-6.1); White Blood Count 6.97 K/uL (4.8-10.8)
[2020-07-11 06:06] LABS: INR 1.6 (0.9-1.1); Prothrombin Time 16.8 Seconds (9.0-12.0)
[2020-07-11 06:19] LABS: BUN Creatinine Ratio 25.6 (10-20); Calcium 8.3 mg/dl (8.5-10.1); Creatinine Clr Calc Pharmacy 49.2 ml/min; Est GFR (African American) 41.7; Est GFR (Non-African American) 35.9; Potassium 4.1 mmol/L (3.5-5.1)
[2020-07-11] MEDS: INSULIN ASPART 100 UNITS/ML 3 ML PEN SC SCH ×4 (08:16→21:17)
[2020-07-11] MEDS: DAPTOmycin 325 MG in SYRINGE 0 ML IV SCH (08:17)
[2020-07-11] MEDS: INSULIN GLARGINE SOLOSTAR 100 UNITS/ML 3 ML PEN SC SCH (08:18)
[2020-07-11] MEDS: CYANOCOBALAMIN 500 MCG TABLET (VITAMIN B-12) PO SCH (08:19)
[2020-07-11] MEDS: METOPROLOL SUCC 25MG EXT REL TAB PO SCH ×2 (08:19→10:15)
[2020-07-11] MEDS ORDERED: METOPROLOL TARTRATE 1 MG/ML VIAL IV PRN (16:57)
--- NOTE | 2020-07-11 16:58 | Hospitalist Progress Note ---
Date of Service July 11, 2020 Assessment & Plan (1) Infected wound: (1) Type 2 diabetes w HHS - treated with aggressive IV NSS boluses and IV insulin gtt presented with lower ext Cellulitis, Hyperosmolar hyperglycemic state (HHS), VICKEY (acute kidney injury), serum glucose 645, Na 122, BUN 7/, Creatinine 2.80, GFR 22.5, Serum Lactate 3.0, Mg 2.5, hx of mediation non compliance -- a1c 16 -- placed on Insulin drip, transitioned to SC insulin -- Pharm Glycemic control appreciated On Site Construction Superintendent consulted -pt will need follow up with Diabetic /MTM clinic Bilateral LE cellulitis Cellulitis of bilateral lower extremities in setting of diabetic leg ulcerations treated with IV Vancomycin, IV Zosyn, IV Daptomycin, and WOCN consult 64-year-old male who has been noted to have worsening bilateral lower extremity leg wounds-has chronic wounds for > 1 month - does not meet sepsis criteria - CT LE: Right lower leg subcutaneous edema with soft tissue irregularity of the anterior right lower leg suggestive of a wound. Subcutaneous edema suggestive of cellulitis. No fluid collection to suggest abscess. 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 due to above - hold diuretics - gentle IV fluids in light of CHF /cr improved today chronic systolic heart failure (EF 45% 2018), patient is on the dry side diuretics on hold for Acute renal failure gentle Iv fluids atrial flutter on Coumadin, NSR, INR supratherapeutic - given Vit k 2.5mg po on admission INR 1.4 today ordered to resume coumadin Hypotension : - hold diuretics borderline tachycardic : Metoprolol dose reduced to 12.5 mg daily episode of vtach in monitor , pt remains asymptomatic ordered for orthostatic vital check cardiology consulted hyperlipidemia on statin Rx history CVA as per records DVT prophylaxis. coumadin Full code Disposition pending PT/OT eval may need Rehab or SNF Admission and Anticipated Discharge Date Admission Date: July 09, 2020 Subjective pt sitting on edge of bed offers no new complain does not have any pain or discomfort on rt foot wound area HR been elevated , with SBP in 90's pt denies of any symptoms of dizzy spell or palpitation no SOB or AQUINO Review of Systems Review of Systems: All systems reviewed & are unremarkable except as noted in HPI & below Constitutional: no fever and no chills Respiratory: no cough, no dyspnea on exertion and no wheezing Cardiovascular: no dyspnea at rest, no palpitations, no lightheadedness and no syncope Physical Exam Constitutional: WD/WN, vitals as above Eyes: PERRL, conjunctivae normal, anicteric sclerae ENMT: external ear and nose normal, oropharynx normal Neck: trachea midline, no thyromegaly Respiratory: normal respiratory effort, lungs clear to auscultation Cardiovascular: Rate/Rhythm: regular rate and regular rhythm Gastrointestinal (Abdomen): normal bowel sounds, soft, nontender, no hepatosplenomegaly Musculoskeletal: Extremities: + foot abnormality (open wounds /right > left ) Neurologic: PERRL, EOMI, accommodation nl, no face palsy, no dysarthria Psychiatric: A+Ox3, euthymic affect Results & Data Results & Data ([facility]) Vital Signs (Past 12 Hours) Vital Signs Temp Pulse Pulse Resp BP BP Pulse Ox 07/11/20 15:30 97 H 07/11/20 14:56 36.1 C L 109 H 20 91/54 L 96 07/11/20 11:29 36.8 C 103 H 20 89/54 L 97 07/11/20 10:14 101/57 L 07/11/20 09:00 115 H 07/11/20 08:23 98/62 L 91/61 L 07/11/20 08:18 37.2 C 110 H 18 99/64 L 98
[2020-07-12] MEDS: PIPERACILLIN/TAZOBACTAM 3.375 GM in DEXTROSE 5% 100 ML IV SCH ×2 (01:50→10:30)
[2020-07-12 06:22] LABS: Basophils # (auto) 0.01 K/uL (0-0.2); Basophils % (auto) 0.1 %; Eosinophils # (auto) 0.11 K/uL (0-0.5); Eosinophils % (auto) 1.6 %; Hematocrit (blood only) 30.5 % (42-52); Hemoglobin 9.9 g/dL (14.0-18.0); Immature Granulocytes # (auto) 0.02 K/uL (0.00-0.02); Immature Granulocytes % (auto) 0.3 %; Lymphocytes # (auto) 1.47 K/uL (1.2-3.4); Lymphocytes % (auto) 20.9 %; Mean Corpuscular Hemoglobin 27.7 pg (25-34); Mean Corpuscular Hgb Conc 32.5 g/dL (32-36); Mean Corpuscular Volume 85.2 fL (80-100); Monocytes % (auto) 12.8 %; Neutrophils # (auto) 4.52 K/uL (1.4-6.5); Neutrophils % (auto) 64.3 %; Platelet Count 228 K/uL (130-400); RDW Coefficient of Variation 14.5 % (11.5-14.5); RDW Standard Deviation 45.6 fL (36.4-46.3); Red Blood Count 3.58 M/uL (4.7-6.1); White Blood Count 7.03 K/uL (4.8-10.8)
[2020-07-12 07:02] LABS: BUN Creatinine Ratio 22.4 (10-20); Calcium 8.5 mg/dl (8.5-10.1); Creatinine Clr Calc Pharmacy 49.6 ml/min; Est GFR (African American) 42.7; Est GFR (Non-African American) 36.9; Potassium 4.3 mmol/L (3.5-5.1)
[2020-07-12] MEDS: INSULIN ASPART 100 UNITS/ML 3 ML PEN SC SCH ×4 (08:08→21:49)
[2020-07-12] MEDS: INSULIN GLARGINE SOLOSTAR 100 UNITS/ML 3 ML PEN SC SCH (08:12)
[2020-07-12] MEDS: CYANOCOBALAMIN 500 MCG TABLET (VITAMIN B-12) PO SCH (08:15)
[2020-07-12] MEDS: DAPTOmycin 325 MG in SYRINGE 0 ML IV SCH (08:46)
--- NOTE | 2020-07-12 09:04 | Cardiology Consultation ---
Date of Consultation July 12, 2020 Assessment & Plan (1) Type 2 diabetes mellitus: (2) Venous stasis ulcers of both lower extremities: (3) Cellulitis: (4) VICKEY (acute kidney injury): (5) Non-compliance: (6) Atrial fibrillation: (7) Atrial flutter: (8) Wide-complex tachycardia: Upon reviewing the patient's telemetry monitoring he was in atrial flutter at the time of the wide-complex tachycardia. He went into wide-complex tachycardia at 150 bpm and upon further review appears to be atrial flutter with a rate related left bundle branch block pattern. This does not appear to be ventricular tachycardia. Recommend continuing diltiazem and warfarin. Would recommend changing the metoprolol tartrate back to succinate which she was on 100 twice daily of upon admission. No further testing necessary at this time. Patient was previously scheduled to see electrophysiology for flutter ablation but failed to follow-up. We will consider sending back to EP in the future. Follow-up as an outpatient with her cardiology practice. History of Present Illness Reason for Consultation: nonsustained ventricular tachycardia Requesting Physician: Dr. Lee Attending Physician: Shalonda Lee MD History of Present Illness Mr. Martin is a very pleasant 64-year-old gentleman who previously followed with Maico Silver of our cardiology practice. He presented to [facility] on 07/09/2020 with complaints of hyperglycemia and bilateral lower extremity nonhealing wounds. He was admitted and treated for lower extremity extensive cellulitis and brief acute renal failure. Upon arrival he was found to be in atrial flutter which is a longstanding diagnosis for him. His INR was initially elevated and reversed with vitamin K. He was admitted to telemetry where he received ongoing treatment and telemetry monitoring showed varying atrial flutter and atrial fibrillation rate controlled. Early in the a.m. of 07/12/2020 the patient had a run of wide-complex tachycardia and cardiology was consulted. Clinically the patient states he feels well. He denies any cardiac complaints of chest pain, shortness of breath, palpitations, lightheadedness, dizziness or syncope. Past Medical and Surgical History: 1. Atrial flutter. Initially observed in September 2017 by PCP. Referred to Dr. Moreau on December 06, 2017 at which time Plavix was discontinued and he was placed on Coumadin anticoagulation. Echocardiography demonstrated mild to moderate reduction in left ventricular systolic function. Evaluated by the undersigned in December 2017, presenting with fatigue attributed to lack asleep however evaluation revealed a slow ventricular response as well as mild to moderate volume overload. Diltiazem was reduced from 360 mg/day to 240 mg/day and he was referred for direct current cardioversion. On January 25, 2018 he underwent transesophageal echo guided direct current cardioversion by Dr. Lindsay with successful conversion from symptomatic atrial flutter to sinus rhythm after two shocks, initially with 200 joules then 300 joules biphasic energy. He returned in January 2018 with recurrent atrial flutter with variable block. Referred to electrophysiology and evaluated by Dr. Jiménez on March 16, 2018. He was felt to be a good candidate for atrial flutter ablation however he has failed to follow- up with EP to date. 2. Mild to moderate reduction in LV systolic function. 3. Hypertension 4. Dyslipidemia 5. Type 2 diabetes mellitus with a chart history of renal disease and neuropathy 6. Previous embolic stroke 7. Eyelid repair. Allergies Allergy/AdvReac Type Severity Reaction Status Date / Time No Known Allergies Allergy Unverified 07/09/20 00:34 Home Medications Medication Instructions Recorded Confirmed Type atorvastatin 10 mg PO DAILY 07/09/20 07/09/20 History benazepril 40 mg PO BID 07/09/20 07/09/20 History cyanocobalamin (vitamin B-12) 1,000 mcg PO DAILY 07/09/20 07/09/20 History diltiazem HCl [Cardizem CD] 180 mg PO DAILY 07/09/20 07/09/20 History empagliflozin [Jardiance] 25 mg PO DAILY 07/09/20 07/09/20 History glipizide 5 mg PO BID 07/09/20 07/09/20 History hydrochlorothiazide 50 mg PO DAILY 07/09/20 07/09/20 History metformin 500 mg PO BID 07/09/20 07/09/20 History metoprolol succinate 100 mg PO BID 07/09/20 07/09/20 History warfarin 5 mg PO DAILY 07/09/20 07/09/20 History blood sugar diagnostic #100 ea 07/12/20 Rx insulin NPH and regular human 35 unit SUBCUT UD #15 ml 07/12/20 Rx [Novolin 70-30 FlexPen U-100] lancets #100 ea 07/12/20 Rx metformin 1,000 mg PO BID 30 Days #60 tab 07/12/20 Rx pen needle, diabetic [ReliOn Pen #100 ea 07/12/20 Rx [place]] Patient History Social History Smoking Status: Unknown if ever smoked Second Hand Exposure: No; Do You Dip or Chew Tobacco: No; Tobacco Cessation Education Requested by Patient: No Hx Alcohol Use: No Hx Substance Use: No Preferred Language: Mexican Communication Ability: Effective Upsetter Required: No Beliefs That Will Affect Care: None Current Living Situation: Family Other Information That Helps Us Care for You: No Feels Safe at Home: Yes Safety Concerns: Feels Safe At This Time Assistive Devices: Walker Review of Systems Review of Systems: All systems reviewed & are unremarkable except as noted in HPI & below Physical Exam Physical Exam: General: Awake, alert and oriented x 3. No acute distress. HEENT: Normocephalic, atraumatic. Pupils equal, round and reactive to light and accommodation. Extraocular muscles are intact. Anicteric sclera. Moist mucous membranes. Neck: No JVD. No bruit. Cardiovascular: irregularly irregular, unable to appreciate murmur, rub or gallop. Pulmonary: Clear to auscultation bilaterally. No rales, rhonchi, or wheezing. Abdomen: Bowel sounds x 4, soft. No rebound, guarding or tenderness. No organomegaly. Extremities: No clubbing, cyanosis or edema. +2 pedal pulses bilaterally. Skin: Warm and dry. Results & Data ([facility]) Vital Signs (Past 12 Hours) Vital Signs Temp Pulse Pulse Resp BP BP BP 07/12/20 07:52 36.6 C 105 H 20 93/57 L 07/12/20 07:22 110 H 07/12/20 03:26 36.8 C 111 H 20 117/73 07/12/20 02:28 90 95/67 L 07/12/20 01:50 112 H 103/59 L 07/11/20 23:09 37.2 C 101 H 18 102/70 07/11/20 22:51 100 H Pulse Ox 07/12/20 07:52 98 07/12/20 07:22 07/12/20 03:26 95 07/12/20 02:28 07/12/20 01:50 07/11/20 23:09 97 07/11/20 22:51 Laboratory Results Laboratory Results - last 24 hr 07/11/20 07/11/20 07/11/20 11:09 11:11 16:30 WBC RBC Hgb Hct MCV MCH MCHC RDW Std Deviation RDW Coeff of Jamal Plt Count MPV Immature Gran % (Auto) Neut % (Auto) Lymph % (Auto) Leslie % (Auto) Eos % (Auto) Baso % (Auto) Neut # (Auto) Lymph # (Auto) Leslie # (Auto) Eos # (Auto) Baso # (Auto) Immature Gran # (Auto) Sodium Potassium Chloride Carbon Dioxide Anion Gap BUN Creatinine Est Cr Clr Drug Dosing Est GFR ( Amer) Est GFR (Non-Af Amer) BUN/Creatinine Ratio Glucose POC Glucose 347 H* 354 H* 153 H Calcium 07/11/20 07/12/20 07/12/20 20:40 06:11 06:11 WBC 7.03 RBC 3.58 L Hgb 9.9 L Hct 30.5 L MCV 85.2 MCH 27.7 MCHC 32.5 RDW Std Deviation 45.6 RDW Coeff of Jamal 14.5 Plt Count 228 MPV 10.0 Immature Gran % (Auto) 0.3 Neut % (Auto) 64.3 Lymph % (Auto) 20.9 Leslie % (Auto) 12.8 Eos % (Auto) 1.6 Baso % (Auto) 0.1 Neut # (Auto) 4.52 Lymph # (Auto) 1.47 Leslie # (Auto) 0.90 H Eos # (Auto) 0.11 Baso # (Auto) 0.01 Immature Gran # (Auto) 0.02 Sodium 133 L Potassium 4.3 Chloride 105 Carbon Dioxide 22 Anion Gap 6.0 BUN 42 H Creatinine 1.86 H Est Cr Clr Drug Dosing 49.6 Est GFR ( Amer) 42.7 Est GFR (Non-Af Amer) 36.9 BUN/Creatinine Ratio 22.4 H Glucose 186 H POC Glucose 217 H Calcium 8.5 07/12/20 07:40 WBC RBC Hgb Hct MCV MCH MCHC RDW Std Deviation RDW Coeff of Jamal Plt Count MPV Immature Gran % (Auto) Neut % (Auto) Lymph % (Auto) Leslie % (Auto) Eos % (Auto) Baso % (Auto) Neut # (Auto) Lymph # (Auto) Leslie # (Auto) Eos # (Auto) Baso # (Auto) Immature Gran # (Auto) Sodium Potassium Chloride Carbon Dioxide Anion Gap BUN Creatinine Est Cr Clr Drug Dosing Est GFR ( Amer) Est GFR (Non-Af Amer) BUN/Creatinine Ratio Glucose POC Glucose 218 H Calcium Diagnostic Findings March 20, 2019 Interpretation Summary (as per Dr. Otto): Normal LV chamber size with mild concentric LVH. Mildly reduced LV systolic function with mild global hypokinesis, EF 45-50%. No significant valvular pathology. Medications Administered Current Inpatient Medications Acetaminophen (Acetaminophen 325 Mg Tab) 650 mg PO Q4H PRN PRN Reason: Pain or Fever Stop: 08/08/20 05:49 Cyanocobalamin (Cyanocobalamin 500 Mcg Tablet (Vitamin B-12)) 1,000 mcg PO DAILY BRENT Stop: 08/08/20 08:59 Last Admin: 07/12/20 08:15 Dose: 1,000 mcg Documented by: Dextrose (Dextrose 50% 50 Ml Syringe) 25 - 50 ml IV UD PRN; Protocol PRN Reason: Hypoglycemia Protocol Stop: 08/08/20 04:14 Glucagon (Glucagon For Inj 1 Mg Vial) 1 mg SQ UD PRN; Protocol PRN Reason: Hypoglycemia Protocol Stop: 08/08/20 05:49 Glucose (Glucose 10 Tabs/Tube) 4 - 8 tabs PO UD PRN; Protocol PRN Reason: Hypoglycemia Protocol Stop: 08/08/20 04:14 Glucose (Glucose 40% Gel 15 Gm Tube) 15 - 30 gm PO UD PRN; Protocol PRN Reason: Hypoglycemia Protocol Stop: 08/08/20 04:14 Hydromorphone HCl (Hydromorphone Inj 0.5 Mg/0.5 Ml Syr) 0.25 mg IV Q3H PRN PRN Reason: Pain Stop: 07/23/20 05:49 Promethazine HCl 12.5 mg/ (Sodium Chloride) 50.5 mls @ 202 mls/hr IV Q6H PRN PRN Reason: Nausea And Vomiting Stop: 08/08/20 05:49 Piperacillin Sod/Tazobactam (Sod 3.375 gm/ Dextrose) 115 mls @ 28.75 mls/hr IV Q8H BRENT; Protocol Stop: 07/16/20 09:59 Last Infusion: 12/11/20 06:46 Dose: Infused Documented by: Daptomycin 325 mg/ Syringe 6.5 mls @ 3.25 mls/min IV Q24H [facility]; Protocol Stop: 07/16/20 07:59 Last Admin: 07/12/20 08:46 Dose: 3.25 mls/min Documented by: Insulin Aspart (Insulin Aspart 100 Units/Ml 3 Ml Pen) 0 units SC ACHS [facility] Stop: 08/08/20 08:14 Last Admin: 07/12/20 08:08 Dose: 20 units Documented by: Insulin Glargine (Insulin Glargine Solostar 100 Units/Ml 3 Ml Pen) 0 units SC DAILY [facility]; Protocol Stop: 08/10/20 08:59 Last Admin: 07/12/20 08:12 Dose: 50 units Documented by: Metoprolol Tartrate (Metoprolol Tartrate 25 Mg Tab) 12.5 mg PO QAM [facility] Stop: 08/11/20 08:59 Metoprolol Tartrate (Metoprolol Tartrate 1 Mg/Ml Vial) 5 mg IV Q6 PRN PRN Reason: HR> 100 Stop: 08/10/20 17:59 Last Admin: 07/12/20 01:50 Dose: 5 mg Documented by: Miscellaneous (Carbohydrates For Hypoglycemia ) 15 - 30 gm PO UD PRN PRN Reason: Hypoglycemia Protocol Stop: 08/08/20 04:14 Last Admin: 07/09/20 13:56 Dose: 15 gm Documented by: Miscellaneous Information (Piperacill/Tazobac Consult Active) 1 ea N/A UD PRN PRN Reason: Consult Stop: 08/08/20 04:18 Miscellaneous Information (Daptomycin Consult Active) 1 ea N/A UD PRN PRN Reason: Consult Stop: 08/08/20 05:56 Miscellaneous Information (Pharmacy Glycemic Mgmt Consult) 1 ea N/A UD PRN PRN Reason: Consult Stop: 08/08/20 08:12 Oxycodone HCl (Oxycodone Hcl Ir 5 Mg Tab (Immediate Release)) 5 - 10 mg PO QID PRN PRN Reason: Pain Stop: 07/23/20 05:49 Last Admin: 07/09/20 10:57 Dose: 10 mg Documented by: (1) Cellulitis Laterality: unspecified laterality Site of cellulitis: extremity Site of cellulitis of extremity: lower extremity Qualified Code(s): L03.119 - Cellulitis of unspecified part of limb (2) Atrial fibrillation Atrial fibrillation type: persistent (not longstanding) Qualified Code(s): I48.19 - Other persistent atrial fibrillation
[2020-07-12] MEDS: METOPROLOL TARTRATE 25 MG TAB PO SCH (10:07)
--- NOTE | 2020-07-12 11:13 | Pharmacy Report ---
Pharmacy Glycemic Short Note 2 - Date of Service July 12, 2020 - Glycemic Short BSG Results (Last 24 hours): 07/11/20 07/11/20 07/11/20 11:09 11:11 16:30 Glucose POC Glucose 347 H* 354 H* 153 H 07/11/20 07/12/20 07/12/20 20:40 06:11 07:40 Glucose 186 H POC Glucose 217 H 218 H OUTPATIENT ANTIDIABETIC REGIMEN: * Jardiance 25 mg PO daily * Metformin 500 mg PO BID * Glipizide 5 mg PO BID ASSESSMENT: * Patient with high HbA1c = 16.9%. Not clear if patient was taking all his oral diabetic meds at home. * Spoke to Early Breastfeeding Care Specialist, patient reported that he was indeed taking them a ll. * Patient was started on basal/bolus insulin regimen since admission. Oral meds were put on hold. * Yesterday, patient received total of 108 units of insulin; of which 45 units was basal and 63 units bolus. * Fasting BSG was elevated this AM above 200, therefore slightly higher dose of basal Lantus was given. * Post-prandial BSGs yesterday at lunch and bedtime were also elevated, Novolog parameters were tightened yesterday and again tightened for lunch today. * Since patient's A1c is very high, he will likely need insulin on discharge as well. Per personal development educator, cost is a concern for him. Long acting Basaglar would be ideal to start with, but Novolin 70/30 insulin is less expensive. See discharge recommendations for both below. PLAN FOR INPATIENT GLYCEMIC CONTROL: * Hold outpatient oral diabetes medications * Basal insulin * Lantus 40-50 units scale SQ QAM based on BSG. See EMR for details. * Bolus insulin: tightened * NovoLog per scale ACHS or Q6hrs while NPO * Goal Range: Low 110 mg/dL - High 140 mg/dL * Correction Factor: 10 mg/dL/unit * Nutritional / Prandial insulin per carb ratio of 1 unit per 4 grams CHO consumed PLAN FOR DISCHARGE: * HbA1c = 16.9% * Continue Jardiance 25 mg PO daily * Increase Metformin to ER 1000 mg PO BID with meals. * Discontinue oral Glipizide, since this paired with Insulin can lead to a higher risk of hypoglycemia. * If Basaglar is possible, recommend Basaglar 40 units SQ daily in the morning. * Otherwise, recommend Novolin 70/30 insulin 35 units SQ daily in the morning 30 minutes before breakfast and 15 units SQ daily in the evening 30 minutes before supper. If meals are skipped then recommend not taking the Novolin 70/30 insulin. * Recommend SMBG at least twice daily. * Recommend close follow up with outpatient provider for dose adjustments for insulin.
[2020-07-12] MEDS ORDERED: Heparin IV Low Dose *NO* Bolus IV SCH (11:45)
[2020-07-12 12:03] LABS: INR 1.2 (0.9-1.1); Prothrombin Time 12.5 Seconds (9.0-12.0)
[2020-07-12] MEDS: HEPARIN SODIUM/DEXTROSE 25,000 UNITS/500 ML BAG IV SCH (12:11)
--- NOTE | 2020-07-12 12:14 | Hospitalist Progress Note ---
Date of Service July 12, 2020 Assessment & Plan (1) Infected wound: (1) Type 2 diabetes w HHS - treated with aggressive IV NSS boluses and IV insulin gtt presented with lower ext Cellulitis, Hyperosmolar hyperglycemic state (HHS), VICKEY (acute kidney injury), serum glucose 645, Na 122, BUN 7/, Creatinine 2.80, GFR 22.5, Serum Lactate 3.0, Mg 2.5, hx of mediation non compliance -- a1c 16 -- placed on Insulin drip, transitioned to SC insulin -- Pharm Glycemic control appreciated - Warp Knit Operator consulted -will need to be discharged on insulin scripts for Insulin and insulin pen needles will be sent to pt's Pharmacy @ [facility] pt will need follow up with Diabetic /MTM clinic Bilateral LE extensive cellulitis Cellulitis of bilateral lower extremities in setting of diabetic leg ulcerations treated with IV Vancomycin, IV Zosyn, IV Daptomycin, and WOCN consult 64-year-old male who has been noted to have worsening bilateral lower extremity leg wounds-has chronic wounds for > 1 month - does not meet sepsis criteria - CT LE: Right lower leg subcutaneous edema with soft tissue irregularity of the anterior right lower leg suggestive of a wound. Subcutaneous edema suggestive of cellulitis. No fluid collection to suggest abscess. 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 due to above - hold diuretics - gentle IV fluids in light of CHF /cr improved today chronic systolic heart failure (EF 45% 2018), patient is on the dry side diuretics on hold for Acute renal failure /hypotension atrial flutter on Coumadin,: remains in Aflutter with HR > 100 pt denies of any symptoms INR remains low ( was elevated in ER , received Vit K ) Coumadin resumed with IV heparin bridge Cardiology consulted Hypotension : - hold diuretics borderline tachycardic : Metoprolol dose reduced to 12.5 mg daily episode of vtach in monitor , pt remains asymptomatic cardiology consulted hyperlipidemia on statin Rx history CVA as per records DVT prophylaxis. Coumadin Full code Disposition: pt lives at home PT/OT eval may need Rehab or SNF Admission and Anticipated Discharge Date Admission Date: July 09, 2020 Subjective pt had dressing change done by Wound care team today no plan for debridement pt reports of no pain or discomfort at legs and feet wounds no fever or chills no complain of chest pain or sob , palpitation or dizzy spell remains in Aflutter with borderline hypotension -pt remains asymptomatic Review of Systems Review of Systems: All systems reviewed & are unremarkable except as noted in HPI & below Constitutional: no fever and no chills Cardiovascular: no chest pain, no dyspnea, no orthopnea, no palpitations and no lightheadedness Physical Exam Constitutional: WD/WN, vitals as above Eyes: PERRL, conjunctivae normal, anicteric sclerae ENMT: external ear and nose normal, oropharynx normal Neck: trachea midline, no thyromegaly Respiratory: normal respiratory effort, lungs clear to auscultation Cardiovascular: Rate/Rhythm: + irregularly irregular Gastrointestinal (Abdomen): normal bowel sounds, soft, nontender, no hepatosplenomegaly Musculoskeletal: Extremities: + lower extremity abnormal to inspection (open wounds with drainage on bilateral lower ext :diffuse erythema ) Bilateral, + lower leg abnormality (multiple open wounds with drainage /surrounding erythema ) Bilateral and + foot abnormality (open wounds /right > left ) Neurologic: PERRL, EOMI, accommodation nl, no face palsy, no dysarthria Psychiatric: A+Ox3, euthymic affect Results & Data Results & Data ([facility]) Vital Signs (Past 12 Hours) Vital Signs Temp Pulse Pulse Resp BP BP BP 07/12/20 11:43 36.5 C 95 H 20 111/72 07/12/20 07:52 36.6 C 105 H 20 93/57 L 07/12/20 07:22 110 H 07/12/20 03:26 36.8 C 111 H 20 117/73 07/12/20 02:28 90 95/67 L 07/12/20 01:50 112 H 103/59 L Pulse Ox 07/12/20 11:43 99 07/12/20 07:52 98 07/12/20 07:22 07/12/20 03:26 95 07/12/20 02:28 07/12/20 01:50
[2020-07-12] MEDS ORDERED: WARFARIN SOD 5 MG TAB PO SCH (12:30)
--- NOTE | 2020-07-12 14:47 | Wound Progress Note ---
Date of Service July 12, 2020 Assessment & Plan (1) Venous stasis ulcers of both lower extremities: Wounds are improving. No debridement is done as patient is on IV heparin and wounds are improving. Wounds will be dressed with Aquacel Ag and a Coban light wrap. Toe wounds will be painted with Betadine. Continue IV antibiotics. We will plan to see the patient again on Wednesday if he is still here. If patient is discharged he needs to be seen in the office within a week. Please call with any questions. (2) Infected wound: Admission and Anticipated Discharge Date Admission Date: July 09, 2020 Subjective Patient seen at bedside with WOCN. Remains on IV antibiotics. Patient was restarted on heparin. He tolerated the wraps well. Review of Systems Review of Systems: All systems reviewed & are unremarkable except as noted in HPI & below Physical Exam Physical Exam: Temp Pulse Resp BP Pulse Ox 36.5 C 95 H 20 111/72 99 07/12/20 11:43 07/12/20 11:43 07/12/20 11:43 07/12/20 11:43 07/12/20 11:43 Constitutional: WD/WN, vitals as above Skin: Venous leg wounds measuring as recorded in nursing documentation. Wounds are covered with fibrin and slough. Periwound intact with moderate drainage. Neurologic: awake; not confused Psychiatric: A+Ox3, euthymic affect Results & Data ([facility]) Vital Signs (Past 12 Hours) Vital Signs Temp Pulse Pulse Resp BP BP Pulse Ox 07/12/20 11:43 36.5 C 95 H 20 111/72 99 07/12/20 07:52 36.6 C 105 H 20 93/57 L 98 07/12/20 07:22 110 H 07/12/20 03:26 36.8 C 111 H 20 117/73 95 Laboratory Results 07/12/20 07/12/20 07/12/20 Range/Units 11:40 11:33 07:40 WBC (4.8-10.8) K/uL RBC (4.7-6.1) M/uL Hgb (14.0-18.0) g/dL Hct (42-52) % MCV (80-100) fL MCH (25-34) pg MCHC (32-36) g/dL RDW Std Deviation (36.4-46.3) fL RDW Coeff of Jamal (11.5-14.5) % Plt Count (130-400) K/uL MPV (7.4-10.4) fL Immature Gran % (Auto) % Neut % (Auto) % Lymph % (Auto) % Starke % (Auto) % Eos % (Auto) % Baso % (Auto) % Neut # (Auto) (1.4-6.5) K/uL Lymph # (Auto) (1.2-3.4) K/uL Starke # (Auto) (0.11-0.59) K/uL Eos # (Auto) (0-0.5) K/uL Baso # (Auto) (0-0.2) K/uL Immature Gran # (Auto) (0.00-0.02) K/uL PT 12.5 H (9.0-12.0) Seconds INR 1.2 H (0.9-1.1) Sodium (136-145) mmol/L Potassium (3.5-5.1) mmol/L Chloride (98-107) mmol/L Carbon Dioxide (21-32) mmol/L Anion Gap (3-11) BUN (7-18) mg/dl Creatinine (0.6-1.4) mg/dl Est Cr Clr Drug Dosing ml/min Est GFR ( Amer) Est GFR (Non-Af Amer) BUN/Creatinine Ratio (10-20) Glucose (70-99) mg/dl POC Glucose 261 H 218 H (70-99) mg/dl Calcium (8.5-10.1) mg/dl 07/12/20 07/12/20 07/11/20 Range/Units 06:11 06:11 20:40 WBC 7.03 (4.8-10.8) K/uL RBC 3.58 L (4.7-6.1) M/uL Hgb 9.9 L (14.0-18.0) g/dL Hct 30.5 L (42-52) % MCV 85.2 (80-100) fL MCH 27.7 (25-34) pg MCHC 32.5 (32-36) g/dL RDW Std Deviation 45.6 (36.4-46.3) fL RDW Coeff of Jamal 14.5 (11.5-14.5) % Plt Count 228 (130-400) K/uL MPV 10.0 (7.4-10.4) fL Immature Gran % (Auto) 0.3 % Neut % (Auto) 64.3 % Lymph % (Auto) 20.9 % Starke % (Auto) 12.8 % Eos % (Auto) 1.6 % Baso % (Auto) 0.1 % Neut # (Auto) 4.52 (1.4-6.5) K/uL Lymph # (Auto) 1.47 (1.2-3.4) K/uL Starke # (Auto) 0.90 H (0.11-0.59) K/uL Eos # (Auto) 0.11 (0-0.5) K/uL Baso # (Auto) 0.01 (0-0.2) K/uL Immature Gran # (Auto) 0.02 (0.00-0.02) K/uL PT (9.0-12.0) Seconds INR (0.9-1.1) Sodium 133 L (136-145) mmol/L Potassium 4.3 (3.5-5.1) mmol/L Chloride 105 (98-107) mmol/L Carbon Dioxide 22 (21-32) mmol/L Anion Gap 6.0 (3-11) BUN 42 H (7-18) mg/dl Creatinine 1.86 H (0.6-1.4) mg/dl Est Cr Clr Drug Dosing 49.6 ml/min Est GFR ( Amer) 42.7 Est GFR (Non-Af Amer) 36.9 BUN/Creatinine Ratio 22.4 H (10-20) Glucose 186 H (70-99) mg/dl POC Glucose 217 H (70-99) mg/dl Calcium 8.5 (8.5-10.1) mg/dl 07/11/20 Range/Units 16:30 WBC (4.8-10.8) K/uL RBC (4.7-6.1) M/uL Hgb (14.0-18.0) g/dL Hct (42-52) % MCV (80-100) fL MCH (25-34) pg MCHC (32-36) g/dL RDW Std Deviation (36.4-46.3) fL RDW Coeff of Jamal (11.5-14.5) % Plt Count (130-400) K/uL MPV (7.4-10.4) fL Immature Gran % (Auto) % Neut % (Auto) % Lymph % (Auto) % Starke % (Auto) % Eos % (Auto) % Baso % (Auto) % Neut # (Auto) (1.4-6.5) K/uL Lymph # (Auto) (1.2-3.4) K/uL Starke # (Auto) (0.11-0.59) K/uL Eos # (Auto) (0-0.5) K/uL Baso # (Auto) (0-0.2) K/uL Immature Gran # (Auto) (0.00-0.02) K/uL PT (9.0-12.0) Seconds INR (0.9-1.1) Sodium (136-145) mmol/L Potassium (3.5-5.1) mmol/L Chloride (98-107) mmol/L Carbon Dioxide (21-32) mmol/L Anion Gap (3-11) BUN (7-18) mg/dl Creatinine (0.6-1.4) mg/dl Est Cr Clr Drug Dosing ml/min Est GFR ( Amer) Est GFR (Non-Af Amer) BUN/Creatinine Ratio (10-20) Glucose (70-99) mg/dl POC Glucose 153 H (70-99) mg/dl Calcium (8.5-10.1) mg/dl PG Care Time/CCT Total # of Minutes Spent Total Time Spent with Patient: Total time spent is greater than 50% in coordination of care (as documented) at patient's floor/unit and/or counseling patient: Coding Level of Care Code 53748 Subseq Hosp Care Lvl 2 Diagnoses Venous stasis ulcers of both lower extremities I83.019; I83.029; L97.919; L97.929 Infected wound T14.8XXA; L08.9
--- NOTE | 2020-07-12 14:57 | Electrocardiogram Report ---
Test Reason : Blood Pressure : / mmHG Vent. Rate : 097 BPM Atrial Rate : 258 BPM P-R Int : 000 ms QRS Dur : 090 ms QT Int : 328 ms P-R-T Axes : 080 005 029 degrees QTc Int : 416 ms Atrial flutter with variable A-V block Low voltage QRS Abnormal ECG When compared with ECG of 09-JUL-2020 21:36, Atrial flutter has replaced Atrial fibrillation Confirmed by Dayday Momin ([id number]) on 07/12/2020 2:57:05 PM Referred By: REFERRED SELF Confirmed By:Dayday Momin
--- NOTE | 2020-07-12 15:51 | Communication Note ---
Date of Service: July 12, 2020 Wound culture on 07/09/2020 Surface Wound Culture Preliminary 07/12/20-0728 Organism 1 Group C Beta Strep Organism 2 Staphylococcus species Organism 3 Group B Beta Strep Televideo consult by Dr Bebeto Pop ID - Recommend : stopping Zosyn IV - continue Daptomycin IV as in patient tx switching to Linezolid 600 mg PO BID prior to discharge to complete 2 weeks of total antibiotics. -need to avoid all mood altering medication (SSRIs, SNRIs, MAOIs, etc)-while on taking Linezolid to prevent severe adverse affect -serotonin syndrome -antibiotics adjusted per recommendation appreciate input from Wound Care : no plan for wound debridement at present repeat wound dressing change by WOCA team on Wednesday07/15/20 plan to discharge pt home when medically stable with oral abx ( will ask CM to check Co-pay or need for per auth for Linezolid/Zyvox ) referral made for [facility] will need weekly follow up at the wound clinic Shalonda Lee MD -
[2020-07-12] MEDS: WARFARIN SOD 10 MG TAB PO SCH (16:41)
[2020-07-12 18:34] LABS: Partial Thromboplastin Ratio 1.3; Partial Thromboplastin Time 36.7 Seconds (21.0-31.0)
[2020-07-12] MEDS ORDERED: HEPARIN IV BOLUS 4,000 UNITS in SYRINGE 0 ML IV ONE (18:45)
[2020-07-13 00:57] LABS: Basophils # (auto) 0.01 K/uL (0-0.2); Basophils % (auto) 0.2 %; Eosinophils # (auto) 0.17 K/uL (0-0.5); Eosinophils % (auto) 2.9 %; Hematocrit (blood only) 29.3 % (42-52); Hemoglobin 9.9 g/dL (14.0-18.0); Immature Granulocytes # (auto) 0.03 K/uL (0.00-0.02); Immature Granulocytes % (auto) 0.5 %; Lymphocytes # (auto) 1.39 K/uL (1.2-3.4); Lymphocytes % (auto) 23.3 %; Mean Corpuscular Hemoglobin 28.6 pg (25-34); Mean Corpuscular Hgb Conc 33.8 g/dL (32-36); Mean Corpuscular Volume 84.7 fL (80-100); Mean Platelet Volume 9.8 fL (7.4-10.4); Monocytes # (auto) 0.84 K/uL (0.11-0.59); Monocytes % (auto) 14.1 %; Neutrophils # (auto) 3.52 K/uL (1.4-6.5); Platelet Count 228 K/uL (130-400); RDW Coefficient of Variation 14.6 % (11.5-14.5); RDW Standard Deviation 45.1 fL (36.4-46.3); Red Blood Count 3.46 M/uL (4.7-6.1); White Blood Count 5.96 K/uL (4.8-10.8)
[2020-07-13 01:08] LABS: INR 1.2 (0.9-1.1); Prothrombin Time 12.1 Seconds (9.0-12.0)
[2020-07-13 01:14] LABS: Calcium 8.1 mg/dl (8.5-10.1); Creatinine Clr Calc Pharmacy 56.3 ml/min; Est GFR (African American) 49.8; Est GFR (Non-African American) 42.9; Potassium 4.1 mmol/L (3.5-5.1)
[2020-07-13 01:20] LABS: Partial Thromboplastin Ratio 1.8
[2020-07-13 01:33] LABS: Partial Thromboplastin Time 50.7 Seconds (21.0-31.0)
[2020-07-13] MEDS: INSULIN ASPART 100 UNITS/ML 3 ML PEN SC SCH ×4 (08:14→20:17)
[2020-07-13] MEDS: DAPTOmycin 325 MG in SYRINGE 0 ML IV SCH (08:15)
[2020-07-13] MEDS: dilTIAZem HCL 180 MG CAPCR PO SCH (08:16)
[2020-07-13] MEDS: METOPROLOL TARTRATE 25 MG TAB PO SCH (08:16)
[2020-07-13] MEDS: CYANOCOBALAMIN 500 MCG TABLET (VITAMIN B-12) PO SCH (08:17)
[2020-07-13] MEDS: INSULIN GLARGINE SOLOSTAR 100 UNITS/ML 3 ML PEN SC SCH (08:19)
[2020-07-13] MEDS: HEPARIN SODIUM/DEXTROSE 25,000 UNITS/500 ML BAG IV SCH ×2 (08:26→12:40)
[2020-07-13 11:58] LABS: Partial Thromboplastin Ratio 1.6; Partial Thromboplastin Time 44.7 Seconds (21.0-31.0)
[2020-07-13] MEDS: WARFARIN SOD 10 MG TAB PO SCH (15:45)
--- NOTE | 2020-07-13 17:43 | Hospitalist Progress Note ---
Date of Service July 13, 2020 Assessment & Plan (1) Infected wound: Bilateral LE extensive cellulitis Cellulitis of bilateral lower extremities in setting of diabetic leg ulcerations treated with IV Vancomycin, IV Zosyn, IV Daptomycin, and WOCN consult 64-year-old male who has been noted to have worsening bilateral lower extremity leg wounds-has chronic wounds for > 1 month - does not meet sepsis criteria - CT LE: Right lower leg subcutaneous edema with soft tissue irregularity of the anterior right lower leg suggestive of a wound. Subcutaneous edema suggestive of cellulitis. No fluid collection to suggest abscess. No evidence for osteomyelitis of the right tibia or fibula.-follow wound care consulte pt will need to be followed at wound clinic on discharge - MRI LE: no osteomyelitis - Arterial Doppler: no stenosis - Cultures of wound: group beta strep appreciate input from [employer] recommends to continue with Daptomycin , will need 2 weeks of PO Zyvox tx on discharge wound clinic follow up Type 2 diabetes w HHS resolved presented with lower ext Cellulitis, Hyperosmolar hyperglycemic state (HHS), VICKEY (acute kidney injury), serum glucose 645, Na 122, BUN 7/, Creatinine 2.80, GFR 22.5, Serum Lactate 3.0, Mg 2.5, - treated with aggressive IV NSS boluses and IV insulin gtt hx of mediation non compliance --Hb a1c 16 -- Pharmacy Glycemic consult appreciated - [employer] consulted -will need to be discharged on insulin scripts for Insulin ReliOn Novolin 70/30 and insulin pen needles sent to pt's [facility]acy @ [facility] pt will need follow up with Diabetic /MTM clinic 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 resolved cr improved to baseline chronic systolic heart failure (EF 45% 2018), patient is on the dry side diuretics on hold for Acute renal failure /hypotension atrial flutter on Coumadin,: remains in Aflutter HR improved to 90's after starting back on PO Cardizem pt is asymptomatic INR remains low ( was elevated in ER , received Vit K ) goal INR 2-3 Coumadin resumed with IV heparin bridge Cardiology consult appreciated Hypotension : SBP in low 90-80's - hold diuretics pt is asymptomatic-no dizzy spell or lightheadedness metoprolol dose adjusted cont Cardizem diuretics kept on hold hyperlipidemia on statin Rx history CVA as per records DVT prophylaxis. Coumadin Full code Disposition: pt lives at home PT/OT eval may need Rehab or SNF Admission and Anticipated Discharge Date Admission Date: July 09, 2020 Subjective pt sitting on chair offers no complain no fever or chills , no pain or discomfort on leg/feet wound remains in aflutter , rate controlled no palpitation , no SOB or chest pain Review of Systems Review of Systems: All systems reviewed & are unremarkable except as noted in HPI & below Physical Exam Constitutional: WD/WN, vitals as above Eyes: PERRL, conjunctivae normal, anicteric sclerae ENMT: external ear and nose normal, oropharynx normal Neck: trachea midline, no thyromegaly Respiratory: normal respiratory effort, lungs clear to auscultation Cardiovascular: Rate/Rhythm: + irregularly irregular Gastrointestinal (Abdomen): normal bowel sounds, soft, nontender, no hepatosplenomegaly Musculoskeletal: Extremities: + lower extremity abnormal to inspection (open wounds with drainage on bilateral lower ext :diffuse erythema ) Bilateral, + lower leg abnormality (multiple open wounds with drainage /surrounding erythema ) and + foot abnormality (open wounds /right > left ) Neurologic: PERRL, EOMI, accommodation nl, no face palsy, no dysarthria Psychiatric: A+Ox3, euthymic affect Results & Data Results & Data ([facility]) Vital Signs (Past 12 Hours) Vital Signs Temp Pulse Pulse Resp BP BP Pulse Ox 07/13/20 14:59 36.9 C 87 18 88/55 L 98 07/13/20 14:49 88 07/13/20 12:08 36.5 C 84 18 92/57 L 84/54 L 97 07/13/20 07:19 111 H 07/13/20 07:11 37.1 C 76 18 122/85 95
[2020-07-13 18:48] LABS: Partial Thromboplastin Ratio 1.7
[2020-07-13 18:52] LABS: Partial Thromboplastin Time 47.2 Seconds (21.0-31.0)
[2020-07-14] MEDS: oxyCODONE HCL IR 5 MG TAB (IMMEDIATE RELEASE) PO PRN (01:57)
[2020-07-14] MEDS: HEPARIN SODIUM/DEXTROSE 25,000 UNITS/500 ML BAG IV SCH ×2 (03:24→23:32)
[2020-07-14 06:18] LABS: Basophils # (auto) 0.01 K/uL (0-0.2); Basophils % (auto) 0.2 %; Eosinophils # (auto) 0.18 K/uL (0-0.5); Hematocrit (blood only) 31.3 % (42-52); Hemoglobin 10.1 g/dL (14.0-18.0); Immature Granulocytes # (auto) 0.02 K/uL (0.00-0.02); Immature Granulocytes % (auto) 0.3 %; Lymphocytes # (auto) 1.58 K/uL (1.2-3.4); Lymphocytes % (auto) 26.7 %; Mean Corpuscular Hemoglobin 27.7 pg (25-34); Mean Corpuscular Hgb Conc 32.3 g/dL (32-36); Mean Corpuscular Volume 85.8 fL (80-100); Mean Platelet Volume 9.9 fL (7.4-10.4); Monocytes # (auto) 0.87 K/uL (0.11-0.59); Monocytes % (auto) 14.7 %; Neutrophils # (auto) 3.25 K/uL (1.4-6.5); Neutrophils % (auto) 55.1 %; Platelet Count 253 K/uL (130-400); RDW Coefficient of Variation 14.6 % (11.5-14.5); RDW Standard Deviation 45.1 fL (36.4-46.3); Red Blood Count 3.65 M/uL (4.7-6.1); White Blood Count 5.91 K/uL (4.8-10.8)
[2020-07-14 06:26] LABS: INR 1.4 (0.9-1.1); Prothrombin Time 14.4 Seconds (9.0-12.0)
[2020-07-14 06:48] LABS: BUN Creatinine Ratio 25.4 (10-20); Calcium 8.4 mg/dl (8.5-10.1); Creatinine Clr Calc Pharmacy 63.3 ml/min; Est GFR (African American) 57.3; Est GFR (Non-African American) 49.4; Potassium 4.1 mmol/L (3.5-5.1)
[2020-07-14 07:25] LABS: Partial Thromboplastin Ratio 1.7
[2020-07-14 07:40] LABS: Partial Thromboplastin Time 46.3 Seconds (21.0-31.0)
[2020-07-14] MEDS: INSULIN ASPART 100 UNITS/ML 3 ML PEN SC SCH ×4 (08:42→21:38)
[2020-07-14] MEDS: METOPROLOL TARTRATE 25 MG TAB PO SCH (08:44)
[2020-07-14] MEDS: dilTIAZem HCL 180 MG CAPCR PO SCH (08:44)
[2020-07-14] MEDS: DAPTOmycin 325 MG in SYRINGE 0 ML IV SCH (08:44)
[2020-07-14] MEDS: INSULIN GLARGINE SOLOSTAR 100 UNITS/ML 3 ML PEN SC SCH (08:45)
[2020-07-14] MEDS: CYANOCOBALAMIN 500 MCG TABLET (VITAMIN B-12) PO SCH (08:45)
--- NOTE | 2020-07-14 09:33 | Cardiology Progress Note ---
Date of Service July 14, 2020 Assessment & Plan (1) Type 2 diabetes mellitus: (2) Venous stasis ulcers of both lower extremities: (3) Cellulitis: (4) VICKEY (acute kidney injury): (5) Non-compliance: (6) Atrial fibrillation: (7) Atrial flutter: (8) Wide-complex tachycardia: The patient is clinically stable. He remains in a rate controlled atrial flutter. At this point cardiology will see him on a as needed basis. Admission and Anticipated Discharge Date Admission Date: July 09, 2020 Subjective The patient is sitting in a chair comfortable. He has no ongoing complaints. Review of Systems Review of Systems: All systems reviewed & are unremarkable except as noted in HPI & below Nothing additional to add. Physical Exam Physical Exam: General: no acute distress and stated age Head: normocephalic, no masses, lesions, tenderness or abnormalities Eyes: conjunctiva are pink and non-injected, sclera clear Neck: supple, no adenopathy, no bruits, normal jugular venous pulse, no hepatojugular reflux Chest: normal shape and normal respiratory effort Lungs: clear to auscultation and percussion Cardiac Exam: - irregular rate & rhythm, no murmurs gallops or rubs - normal S1, normal S2 Pulses: 2(+) throughout Abdomen: abdomen soft, non-tender, no abnormal masses and no hepatosplenomegaly Musculoskeletal: no gait disturbance, no joint inflammation, no deforming arthritis Extremities: Legs are wrapped bilaterally. Neuro: grossly normal exam Results & Data ([facility]) Vital Signs (Past 12 Hours) Vital Signs Temp Pulse Pulse Resp BP BP Pulse Ox 07/14/20 08:13 37 C 103 H 18 114/79 98 07/14/20 07:50 98 H 07/14/20 04:20 37.1 C 80 20 121/81 96 07/13/20 23:17 37.3 C 100 H 18 117/78 99 Laboratory Results Laboratory Results - last 24 hr 07/13/20 07/13/20 07/13/20 11:15 11:40 16:53 WBC RBC Hgb Hct MCV MCH MCHC RDW Std Deviation RDW Coeff of Jamal Plt Count MPV Immature Gran % (Auto) Neut % (Auto) Lymph % (Auto) Brooks % (Auto) Eos % (Auto) Baso % (Auto) Neut # (Auto) Lymph # (Auto) Brooks # (Auto) Eos # (Auto) Baso # (Auto) Immature Gran # (Auto) PT INR APTT 44.7 H PTT Ratio 1.6 Sodium Potassium Chloride Carbon Dioxide Anion Gap BUN Creatinine Est Cr Clr Drug Dosing Est GFR ( Amer) Est GFR (Non-Af Amer) BUN/Creatinine Ratio Glucose POC Glucose 226 H 170 H Calcium 07/13/20 07/13/20 07/14/20 18:14 20:12 05:31 WBC RBC Hgb Hct MCV MCH MCHC RDW Std Deviation RDW Coeff of Jamal Plt Count MPV Immature Gran % (Auto) Neut % (Auto) Lymph % (Auto) Brooks % (Auto) Eos % (Auto) Baso % (Auto) Neut # (Auto) Lymph # (Auto) Brooks # (Auto) Eos # (Auto) Baso # (Auto) Immature Gran # (Auto) PT 14.4 H INR 1.4 H APTT 47.2 H* PTT Ratio 1.7 Sodium Potassium Chloride Carbon Dioxide Anion Gap BUN Creatinine Est Cr Clr Drug Dosing Est GFR ( Amer) Est GFR (Non-Af Amer) BUN/Creatinine Ratio Glucose POC Glucose 192 H Calcium 07/14/20 07/14/20 07/14/20 05:31 05:31 05:31 WBC 5.91 RBC 3.65 L Hgb 10.1 L Hct 31.3 L MCV 85.8 MCH 27.7 MCHC 32.3 RDW Std Deviation 45.1 RDW Coeff of Jamal 14.6 H Plt Count 253 MPV 9.9 Immature Gran % (Auto) 0.3 Neut % (Auto) 55.1 Lymph % (Auto) 26.7 Brooks % (Auto) 14.7 Eos % (Auto) 3.0 Baso % (Auto) 0.2 Neut # (Auto) 3.25 Lymph # (Auto) 1.58 Brooks # (Auto) 0.87 H Eos # (Auto) 0.18 Baso # (Auto) 0.01 Immature Gran # (Auto) 0.02 PT INR APTT 46.3 H* PTT Ratio 1.7 Sodium 134 L Potassium 4.1 Chloride 104 Carbon Dioxide 25 Anion Gap 5.0 BUN 37 H Creatinine 1.46 H Est Cr Clr Drug Dosing 63.3 Est GFR ( Amer) 57.3 Est GFR (Non-Af Amer) 49.4 BUN/Creatinine Ratio 25.4 H Glucose 129 H POC Glucose Calcium 8.4 L 07/14/20 07:35 WBC RBC Hgb Hct MCV MCH MCHC RDW Std Deviation RDW Coeff of Jamal Plt Count MPV Immature Gran % (Auto) Neut % (Auto) Lymph % (Auto) Brooks % (Auto) Eos % (Auto) Baso % (Auto) Neut # (Auto) Lymph # (Auto) Brooks # (Auto) Eos # (Auto) Baso # (Auto) Immature Gran # (Auto) PT INR APTT PTT Ratio Sodium Potassium Chloride Carbon Dioxide Anion Gap BUN Creatinine Est Cr Clr Drug Dosing Est GFR ( Amer) Est GFR (Non-Af Amer) BUN/Creatinine Ratio Glucose POC Glucose 136 H Calcium Medications Administered Current Inpatient Medications Acetaminophen (Acetaminophen 325 Mg Tab) 650 mg PO Q4H PRN PRN Reason: Pain or Fever Stop: 08/08/20 05:49 Cyanocobalamin (Cyanocobalamin 500 Mcg Tablet (Vitamin B-12)) 1,000 mcg PO DAILY BRENT Stop: 08/08/20 08:59 Last Admin: 07/14/20 08:45 Dose: 1,000 mcg Documented by: Dextrose (Dextrose 50% 50 Ml Syringe) 25 - 50 ml IV UD PRN; Protocol PRN Reason: Hypoglycemia Protocol Stop: 08/08/20 04:14 Diltiazem HCl (Diltiazem Hcl 180 Mg Capcr) 180 mg PO DAILY BRENT Stop: 08/12/20 08:59 Last Admin: 07/14/20 08:44 Dose: 180 mg Documented by: Glucagon (Glucagon For Inj 1 Mg Vial) 1 mg SQ UD PRN; Protocol PRN Reason: Hypoglycemia Protocol Stop: 08/08/20 05:49 Glucose (Glucose 10 Tabs/Tube) 4 - 8 tabs PO UD PRN; Protocol PRN Reason: Hypoglycemia Protocol Stop: 08/08/20 04:14 Glucose (Glucose 40% Gel 15 Gm Tube) 15 - 30 gm PO UD PRN; Protocol PRN Reason: Hypoglycemia Protocol Stop: 08/08/20 04:14 Hydromorphone HCl (Hydromorphone Inj 0.5 Mg/0.5 Ml Syr) 0.25 mg IV Q3H PRN PRN Reason: Pain Stop: 07/23/20 05:49 Promethazine HCl 12.5 mg/ (Sodium Chloride) 50.5 mls @ 202 mls/hr IV Q6H PRN PRN Reason: Nausea And Vomiting Stop: 08/08/20 05:49 Daptomycin 325 mg/ Syringe 6.5 mls @ 3.25 mls/min IV Q24H [facility]; Protocol Stop: 07/16/20 07:59 Last Admin: 07/14/20 08:44 Dose: 3.25 mls/min Documented by: Heparin Sodium/Dextrose (Heparin Sodium/Dextrose) 25,000 units in 500 mls @ 26 mls/hr IV .[id number] [facility]; Protocol Stop: 08/11/20 11:44 Last Titration: 07/14/20 07:48 Dose: 1,300 units/hr, 26 mls/hr Documented by: Insulin Aspart (Insulin Aspart 100 Units/Ml 3 Ml Pen) 0 units SC ACHS [facility] Stop: 08/08/20 08:14 Last Admin: 07/14/20 08:42 Dose: 19 units Documented by: Insulin Glargine (Insulin Glargine Solostar 100 Units/Ml 3 Ml Pen) 55 units SC DAILY [facility]; Protocol Stop: 08/12/20 08:59 Last Admin: 07/14/20 08:45 Dose: 55 units Documented by: Metoprolol Tartrate (Metoprolol Tartrate 25 Mg Tab) 12.5 mg PO QAM [facility] Stop: 08/11/20 08:59 Last Admin: 07/14/20 08:44 Dose: 12.5 mg Documented by: Metoprolol Tartrate (Metoprolol Tartrate 1 Mg/Ml Vial) 5 mg IV Q6 PRN PRN Reason: HR> 100 Stop: 08/10/20 17:59 Last Admin: 07/12/20 01:50 Dose: 5 mg Documented by: Miscellaneous (Carbohydrates For Hypoglycemia ) 15 - 30 gm PO UD PRN PRN Reason: Hypoglycemia Protocol Stop: 08/08/20 04:14 Last Admin: 07/09/20 13:56 Dose: 15 gm Documented by: Miscellaneous Information (Daptomycin Consult Active) 1 ea N/A UD PRN PRN Reason: Consult Stop: 08/08/20 05:56 Miscellaneous Information (Pharmacy Glycemic Mgmt Consult) 1 ea N/A UD PRN PRN Reason: Consult Stop: 08/08/20 08:12 Oxycodone HCl (Oxycodone Hcl Ir 5 Mg Tab (Immediate Release)) 5 - 10 mg PO QID PRN PRN Reason: Pain Stop: 07/23/20 05:49 Last Admin: 07/14/20 01:57 Dose: 5 mg Documented by: Warfarin Sodium (Warfarin Sod 10 Mg Tab) 10 mg PO DAILY@1600 BRENT Stop: 08/11/20 15:59 Last Admin: 07/13/20 15:45 Dose: 10 mg Documented by: (1) Cellulitis Laterality: unspecified laterality Site of cellulitis: extremity Site of cellulitis of extremity: lower extremity Qualified Code(s): L03.119 - Cellulitis of unspecified part of limb (2) Atrial fibrillation Atrial fibrillation type: persistent (not longstanding) Qualified Code(s): I48.19 - Other persistent atrial fibrillation
[2020-07-14] MEDS ORDERED: LINEZOLID CONSULT ACTIVE PRN (15:52)
--- NOTE | 2020-07-14 16:01 | Hospitalist Progress Note ---
Date of Service July 14, 2020 Assessment & Plan (1) Infected wound: Bilateral LE extensive cellulitis Cellulitis of bilateral lower extremities in setting of diabetic leg ulcerations treated with IV Vancomycin, IV Zosyn, IV Daptomycin, and WOCN consult 64-year-old male who has been noted to have worsening bilateral lower extremity leg wounds-has chronic wounds for > 1 month - does not meet sepsis criteria - CT LE: Right lower leg subcutaneous edema with soft tissue irregularity of the anterior right lower leg suggestive of a wound. Subcutaneous edema suggestive of cellulitis. No fluid collection to suggest abscess. No evidence for osteomyelitis of the right tibia or fibula.-follow wound care consulte pt will need to be followed at wound clinic on discharge - MRI LE: no osteomyelitis - Arterial Doppler: no stenosis Wound culture: Group B strep /coag negative staph appreciate input from Kiesha ID was on IV Daptomycin changed to PO Zyvox will need total 2 weeks tx wound clinic follow up Type 2 diabetes w HHS poorly controlled Hb A1c 16 with hx of medication non compliance hyperglycemic episode resolved presented with lower ext Cellulitis, Hyperosmolar hyperglycemic state (HHS), VICKEY (acute kidney injury), serum glucose 645, Na 122, BUN 7/, Creatinine 2.80, GFR 22.5, Serum Lactate 3.0, Mg 2.5, - treated with aggressive IV NSS boluses and IV insulin gtt - Pharmacy Glycemic consult appreciated - on SC basal insulin with SSI - Job Order Clerk consulted -will need to be discharged on insulin scripts for Insulin ReliOn Novolin 70/30 and insulin pen needles sent to pt's Pharmacy @ [facility] pt will need follow up with Diabetic /MTM clinic 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 resolved cr improved to baseline chronic systolic heart failure (EF 45% 2018), patient is on the dry side diuretics on hold for Acute renal failure /hypotension atrial flutter on Coumadin,: remains in Aflutter rate controlled , on Coumadin and Low dose Lopressor pt is asymptomatic ECHO : EF 60-65% , no wall motion abnormality INR remains low ( was elevated in ER , received Vit K ) goal INR 2-3 cont Coumadin with IV heparin bridge Cardiology consult appreciated HTN: BP remains in low 100's pt is asymptomatic-no dizzy spell or lightheadedness metoprolol dose adjusted cont Cardizem diuretics kept on hold hyperlipidemia on statin Rx history CVA as per records DVT prophylaxis. Coumadin Full code Disposition: pt lives at home plan to return home with [facility] on discharge . will need to follow up at the Wound care clinic Admission and Anticipated Discharge Date Admission Date: July 09, 2020 Subjective feels fine no fever or chills HR remains rate controlled Aflutter pt denies of any SOB , palpation or chest pain no pain or discomfort on lower ext infected wound Physical Exam Constitutional: WD/WN, vitals as above Eyes: PERRL, conjunctivae normal, anicteric sclerae ENMT: external ear and nose normal, oropharynx normal Neck: trachea midline, no thyromegaly Respiratory: normal respiratory effort, lungs clear to auscultation Cardiovascular: Rate/Rhythm: + irregularly irregular Gastrointestinal (Abdomen): normal bowel sounds, soft, nontender, no hepatosplenomegaly Musculoskeletal: Extremities: + lower extremity abnormal to inspection (open wounds with drainage on bilateral lower ext :diffuse erythema ) Bilateral, + lower leg abnormality (multiple open wounds with drainage /surrounding erythema ) and + foot abnormality (open wounds /right > left ) Neurologic: PERRL, EOMI, accommodation nl, no face palsy, no dysarthria Psychiatric: A+Ox3, euthymic affect Results & Data Results & Data ([facility]) Vital Signs (Past 12 Hours) Vital Signs Temp Pulse Pulse Resp BP BP Pulse Ox 07/14/20 15:09 37.1 C 74 18 96/61 L 98 07/14/20 15:07 69 07/14/20 10:44 37 C 93 H 18 102/64 99 07/14/20 08:13 37 C 103 H 18 114/79 98 07/14/20 07:50 98 H 07/14/20 04:20 37.1 C 80 20 121/81 96
[2020-07-14] MEDS: WARFARIN SOD 10 MG TAB PO SCH (17:03)
[2020-07-14] MEDS: LINEZOLID 600 MG TAB PO SCH (20:06)
[2020-07-15] MEDS: oxyCODONE HCL IR 5 MG TAB (IMMEDIATE RELEASE) PO PRN (01:36)
[2020-07-15 08:03] LABS: INR 1.7 (0.9-1.1); Prothrombin Time 17.6 Seconds (9.0-12.0)
[2020-07-15] MEDS: INSULIN ASPART 100 UNITS/ML 3 ML PEN SC SCH ×2 (08:10→12:31)
[2020-07-15] MEDS: INSULIN GLARGINE SOLOSTAR 100 UNITS/ML 3 ML PEN SC SCH (08:10)
[2020-07-15] MEDS: LINEZOLID 600 MG TAB PO SCH (08:11)
[2020-07-15] MEDS: dilTIAZem HCL 180 MG CAPCR PO SCH (08:11)
[2020-07-15] MEDS: METOPROLOL TARTRATE 25 MG TAB PO SCH (08:12)
[2020-07-15] MEDS: CYANOCOBALAMIN 500 MCG TABLET (VITAMIN B-12) PO SCH (08:12)
[2020-07-15 08:18] LABS: BUN Creatinine Ratio 20.4 (10-20); Calcium 9.2 mg/dl (8.5-10.1); Est GFR (African American) 50.5; Est GFR (Non-African American) 43.6; Potassium 4.5 mmol/L (3.5-5.1)
[2020-07-15 09:37] LABS: Partial Thromboplastin Time 56.9 Seconds (21.0-31.0)
--- NOTE | 2020-07-15 12:14 | Pharmacy Report ---
Pharmacy Glycemic Short Note 2 - Date of Service July 15, 2020 - Glycemic Short BSG Results (Last 24 hours): 07/14/20 07/14/20 07/15/20 16:40 20:22 07:25 Glucose 142 H POC Glucose 158 H 155 H 07/15/20 07/15/20 07:27 11:38 Glucose POC Glucose 148 H 203 H OUTPATIENT ANTIDIABETIC REGIMEN: * Jardiance 25 mg PO daily * Metformin 500 mg PO BID * Glipizide 5 mg PO BID ASSESSMENT: 07/15 * BSGs fairly well controlled over last 24 hrs. * 126 units SQ insulin given and BSGs have ranged 136-251, of note only 1 BSG above 180. Patient was tolerating a diet during this time period. * Fasting BSG 148 this AM with 55 units Lantus on board - will continue the same as this is near goal and may improve w/ repeat dosing * Post-prandial BSGs at goal 2 of 3 yesterday. Pre-lunch hyperglycemia may persist w/ current orders. If pre-lunch BSG elevated again tomorrow will increase breakfast dose of Novolog. Will continue current CF and CR for remainder of day today. PLAN FOR INPATIENT GLYCEMIC CONTROL: * Hold outpatient oral diabetes medications (Jardiance, Metformin, Glipizide - of note, pt was non-compliant) * Basal insulin * Lantus 55 units SQ QAM * Bolus insulin: * NovoLog per scale ACHS or Q6hrs while NPO * Goal Range: Low 110 mg/dL - High 140 mg/dL * Correction Factor: 10 mg/dL/unit * Nutritional / Prandial insulin per carb ratio of 1 unit per 4 grams CHO consumed PLAN FOR DISCHARGE: * HbA1c = 16.9% * Continue Jardiance 25 mg PO daily * Continue Metformin to ER 500 mg PO BID with meals. * Discontinue oral Glipizide, since this paired with Insulin can lead to a higher risk of hypoglycemia. * If Basaglar is possible, recommend Basaglar 40 units SQ daily in the morning. * Otherwise, recommend Novolin 70/30 insulin 30 units SQ daily in the morning 30 minutes before breakfast and 15 units SQ daily in the evening 30 minutes before supper. If meals are skipped then recommend not taking the Novolin 70/30 insulin. * Recommend SMBG at least twice daily. * Recommend close follow up with outpatient provider for dose adjustments for insulin.
--- NOTE | 2020-07-15 13:07 | Communication Note ---
Date of Service: July 15, 2020 ATTENDING NOTE : legs and feet dressing change done by Wound care team today noted healing appropriately has been doing well will need 7 more days of Zyvox tx Linezolid /Zyvox has higher co pay $66 at [facility] with Good rx coupon 50 $ co -pay at [facility] -script sent to [facility] at [place] as per pt's request pt is discharged home with insulin -[facility] Brand ReliOn is cheaper /Insulin Novolin 70/30 and insulin pen needles , glucose monitoring testing strips and lancets sent to [facility] Metoprolol dose reduced from 100 mgBID to 12.5 mg daily -for hypotension Pt remains in rate controlled A flutter cont out pt follow up with Cardiology . INR 1.7 pt will be discharged home today with Coumadin arrangements made for home health visiting nurse through [facility] . plan of care d/w pt in detail all questions answered . Shalonda Lee MD
--- NOTE | 2020-07-15 13:20 | Discharge Summary ---
Date of Service July 15, 2020 Admission HPI Per Admitting Provider History obtained from patient and records. Medical history significant for chronic systolic heart failure (EF 45% 2018), atrial flutter on Coumadin, hypertension, hyperlipidemia, history CVA, DM on oral medications, CRI (baseline creatinine 1.7 as of 2019). Last confinement April 2015 for CVA. Patient has had wounds on both lower legs sustained from bumping corners for about a month now as per patient. Wound with some drainage from time to time. No fever, no chills. Achy bilateral leg pain. No chest pain, no S OB. Patient sent to ER by daughter for evaluation due to worsening bilateral leg wound concerns. Patient received Vancomycin and Zosyn at the ER. IV insulin started at the ER for blood sugars in the 600s. Medical History as above Surgical History : Skin cancer surgery Family History : Lung cancer, hypertension Personal/Social history : Non-smoker, occasional EtOH intake, retired from factory work Principal Diagnosis BILATERAL LOWER EXTREMITY INFECTED VENOUS STASIS WOUND POORLY CONTROLLED DIABETES ATRIAL FLUTTER Discharge Exam Constitutional WD/WN, vitals as above Eyes PERRL, conjunctivae normal, anicteric sclerae ENMT external ear and nose normal, oropharynx normal Neck trachea midline, no thyromegaly Respiratory normal respiratory effort, lungs clear to auscultation Cardiovascular Rate/Rhythm: + irregularly irregular Gastrointestinal (Abdomen) normal bowel sounds, soft, nontender, no hepatosplenomegaly Musculoskeletal Extremities: + lower extremity abnormal to inspection (open wounds with drainage on bilateral lower ext :diffuse erythema ) Bilateral, + lower leg abnormality (multiple open wounds with drainage /surrounding erythema ) and + foot abnormality (open wounds /right > left ) Neurologic PERRL, EOMI, accommodation nl, no face palsy, no dysarthria Psychiatric A+Ox3, euthymic affect Discharge Data Allergies Allergy/AdvReac Type Severity Reaction Status Date / Time No Known Allergies Allergy Unverified 07/09/20 00:34 Consultations 07/09/20 00:47 ED Decision to Admit Stat 07/09/20 05:50 Consult Case Management - Discharge Planning Routine 07/09/20 07:37 Consult Wound Care Provider Routine 07/11/20 17:51 Consult Cardiology Routine Consult Infectious Diseases Routine Ordered Studies 07/09/20 06:01 CT tib/fib RT wo con Urgent 07/09/20 07:37 MR lower leg LT wo/w con Routine MR lower leg RT wo/w con Routine 07/09/20 14:00 US arterial duplex LE BI Routine Diabetes Follow up Diabetes Follow-up Needed for HgbA1c >9% Hospital Course (1) Infected wound: Bilateral LE extensive cellulitis Cellulitis of bilateral lower extremities in setting of diabetic leg ulcerations treated with IV Vancomycin, IV Zosyn, IV Daptomycin, and WOCN consult 64-year-old male who has been noted to have worsening bilateral lower extremity leg wounds-has chronic wounds for > 1 month - does not meet sepsis criteria - CT LE: Right lower leg subcutaneous edema with soft tissue irregularity of the anterior right lower leg suggestive of a wound. Subcutaneous edema suggestive of cellulitis. No fluid collection to suggest abscess. No evidence for osteomyelitis of the right tibia or fibula.-follow wound care consulte pt will need to be followed at wound clinic on discharge - MRI LE: no osteomyelitis - Arterial Doppler: no stenosis Wound culture: Group B strep /coag negative staph appreciate input from [employer] ID was on IV Daptomycin changed to PO Zyvox discharged home with 2 weeks of PO Abx wound clinic follow up Type 2 diabetes w HHS poorly controlled Hb A1c 16 with hx of medication non compliance hyperglycemic episode resolved presented with lower ext Cellulitis, Hyperosmolar hyperglycemic state (HHS), VICKEY (acute kidney injury), serum glucose 645, Na 122, BUN 7/, Creatinine 2.80, GFR 22.5, Serum Lactate 3.0, Mg 2.5, - treated with aggressive IV NSS boluses and IV insulin gtt - Pharmacy Glycemic consult appreciated - on SC basal insulin with SSI - Research Clerk consulted -will need to be discharged on insulin scripts for Insulin ReliOn Novolin 70/30 and insulin pen needles sent to pt's Pharmacy [facility] pt will need follow up with Diabetic /MTM clinic 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 resolved cr improved to baseline chronic systolic heart failure (EF 45% 2018), patient is on the dry side diuretics on hold for Acute renal failure /hypotension atrial flutter on Coumadin,: remains in Aflutter rate controlled , on Coumadin and Low dose Lopressor pt is asymptomatic ECHO : EF 60-65% , no wall motion abnormality INR 1.7 today Dc Iv heparin pt discharged home with prior dose of coumadin coagulation clinic follow up for Pt/INR monitoring and Couamdin dosing HTN: BP remains in low 100's pt is asymptomatic-no dizzy spell or lightheadedness metoprolol dose adjusted cont Cardizem diuretics resumed hyperlipidemia on statin Rx history CVA as per records DVT prophylaxis. Coumadin Full code Disposition: stable to be discharged home today Total Time Total Time Spent Total Time Spent (In Minutes): 40 mins Total Time Includes: Examination of the Patient, Discharge Planning and Medication Reconciliation Discharge Plan Discharge Items Patient Disposition: Home - Home Health Services Reason For Visit: HYPERGLYCEMIC CRISIS Discharge Diagnosis: BILATERAL LOWER EXTREMITY INFECTED VENOUS STASIS WOUND POORLY CONTROLLED DIABETES ATRIAL FLUTTER Activity: Resume your previous activity Non-emergency contact: Primary Care Provider Call non-emergency contact if: you have any medication questions Follow-up/Referrals: Maico Silver [Physician Medical Services Assistant] - Maico Lares MD [Primary Care Provider] - 07/19/20 11:00 am (Date & Time 07/19/2020 11:00 AM Provider Hetal Nunez DO Department [facility] ) Efren Ramirez DO [Physician] - (WOUND CLINIC FOLLOW UP IN A WEEK ) Diet: Carb Consistent or DM2 and Heart Healthy Addtl Attending Provider Instructions: MEDICATIONS CHANGE FOR YOUR DIABETES MANAGEMENT : YOUR BLOOD SUGARS BEEN VERY ELEVATED -POSSIBLE LEADING TO POOR HEALING OF LEG WOUND HbA1c = 16.9%-meaning in avarage last 90 days your blood sugar was > 400 -which can cause serious damage to you kidneys causing kidney failure /dialysis /heart attack /loss of vision/stroke you are started on insulin : Novolin 70/30 Units : 35 units SQ daily in the morning 30 minutes before breakfast and 15 units SQ daily in the evening 30 minutes before supper If meals are skipped . do not take the Novolin 70/30 insulin ( your blood sugar can get very low ) Continue Jardiance 25 mg PO daily Metformin dose increased to 1000 mg PO BID with meals. Do not take oral Glipizide, Blood sugar check twice daily -keep log and bring them to your next Clinic visit Close follow up with outpatient provider for dose adjustments for insulin. you will need referral to Diabetic /MTM clinic for close monitoring of blood sugar and medication adjustments Follow up at the wound care clinic as instructed Metoprolol dose reduced to 100 mg twice daily to 12.5 mg daily ( as your blood pressure was low ) please follow up with Cardiology for further dose adjustment Follow up with Coumadin clinic for INR monitoring and Coumadin dose adjustment Pending Studies at Discharge: No Stand-Alone Forms: My [facility], Smoking Cessation Medications and DC Order Prescriptions: New (DME) pen needle, diabetic [ReliOn Pen [place]] 32 gauge x 5/32" needle See Rx Instructions .ROUTE .MEDSUPPLY Qty: 100 RF: 3 metformin 1,000 mg tablet extended release 24hr 1,000 mg PO BID 30 Days Qty: 60 RF: 3 Novolin 70-30 FlexPen U-100 100 unit/mL (70-30) insulin pen 35 unit subcut UD Qty: 15 RF: 3 (DME) lancets 33 gauge misc See Rx Instructions .ROUTE .MEDSUPPLY Qty: 100 RF: 3 (DME) blood sugar diagnostic Strip See Rx Instructions .ROUTE .MEDSUPPLY Qty: 100 RF: 3 linezolid 600 mg Tablet 600 mg PO BID 7 Days Qty: 14 RF: 0 metoprolol tartrate 25 mg Tablet 12.5 mg PO QAM 30 Days Qty: 15 RF: 0 Continued atorvastatin 10 mg Tablet 10 mg PO DAILY RF: 0 diltiazem HCl [Cardizem CD] 180 mg Capsule,Extended Release 24hr 180 mg PO DAILY RF: 0 benazepril 40 mg Tablet 40 mg PO BID RF: 0 Jardiance 25 mg Tablet 25 mg PO DAILY RF: 0 cyanocobalamin (vitamin B-12) 1,000 mcg Tablet 1,000 mcg PO DAILY RF: 0 warfarin 5 mg Tablet 5 mg PO DAILY RF: 0 Discontinued metformin 500 mg Tablet 500 mg PO BID RF: 0 hydrochlorothiazide 50 mg Tablet 50 mg PO DAILY RF: 0 metoprolol succinate 100 mg Tablet Extended Release 24 Hr 100 mg PO BID RF: 0 glipizide 5 mg Tablet 5 mg PO BID RF: 0 Discharge Orders: Discharge Order (Routine); Ordered 07/15/20 Ordered By: Shalonda Lee Admission Data Admit Date/Time: 07/09/20 03:37 Attending Provider: Shalonda Lee Admit Provider: Cayden Gibson Primary Care Provider: Maico Lares Other Providers: Cayden Gibson ; Patti Orozco ; Hamlet Styles ; Selina Ventura ; [facility] ; Rodney Courtney ; [facility] ; Dangelo Otto ; Giuliano Lindsay ; Patel Burgos ; Horacio Rodriguez ; Boaz Moreau ; Maico Silver ; Joyce Edwards ; Genesis Dodd ; Thony Leija ; Yayo Stinson ; Deangelo Carl ; Javed Andrade I. ; Dominic Tate II ; April Ramsay ; Maico Gerard Other Interventions: Discharge Summary Assessment (RN) Last Done: 07/15/20 13:29
--- NOTE | 2020-07-19 12:10 | Coding Query ---
PRESSURE ULCER DOCUMENTATION To promote full compliance with coding requirements relating to patient care, physician participation is requested in all cases of manager animation uncertainty. Please assist us with the question(s) below: Please specify the known or suspected type by placing an "X" within the parenthesis (x). If possible, please check the box that provides the specific stage of the pressure ulcer A non-pressure chronic ulcer of the right calf ( ) limited to breakdown of skin ( ) with fat layer exposed ( ) with necrosis of muscle ( ) with necrosis of bone ( ) with muscle involvement without evidence of necrosis ( ) with bone involvement without evidence of necrosis ( ) with other specified severity ( x) with unspecified severity Non-pressure chronic ulcer of the left calf ( x) limited to breakdown of skin ( ) with fat layer exposed ( ) with necrosis of muscle ( ) with necrosis of bone ( ) with muscle involvement without evidence of necrosis ( ) with bone involvement without evidence of necrosis ( ) with other specified severity ( ) with unspecified severity Non-pressure chronic ulcer of the right ankle ( ) limited to breakdown of skin ( ) with fat layer exposed ( ) with necrosis of muscle ( ) with necrosis of bone ( ) with muscle involvement without evidence of necrosis ( ) with bone involvement without evidence of necrosis ( ) with other specified severity ( x) with unspecified severity Non-pressure chronic ulcer of the left ankle ( ) limited to breakdown of skin ( ) with fat layer exposed ( ) with necrosis of muscle ( ) with necrosis of bone ( ) with muscle involvement without evidence of necrosis ( ) with bone involvement without evidence of necrosis ( ) with other specified severity ( x) with unspecified severity Non-pressure chronic ulcer of the right heel ( ) limited to breakdown of skin ( ) with fat layer exposed ( ) with necrosis of muscle ( ) with necrosis of bone ( ) with muscle involvement without evidence of necrosis ( ) with bone involvement without evidence of necrosis ( ) with other specified severity ( x) with unspecified severity Non-pressure chronic ulcer of other part of right foot (toes) ( ) limited to breakdown of skin ( ) with fat layer exposed ( ) with necrosis of muscle ( ) with necrosis of bone ( ) with muscle involvement without evidence of necrosis ( ) with bone involvement without evidence of necrosis ( ) with other specified severity (x ) with unspecified severity Non-pressure chronic ulcer of other part of left foot (toes) ( ) limited to breakdown of skin ( ) with fat layer exposed ( ) with necrosis of muscle ( ) with necrosis of bone ( ) with muscle involvement without evidence of necrosis ( ) with bone involvement without evidence of necrosis ( ) with other specified severity (x ) with unspecified severity Thank you Selina GONZALEZ
== END 2020-07-15 14:46 | disposition home health service (06) | DRG 602 ==
LOC: ED 20:18 → 2N 07-09 03:37 → SUATTDRO 07-09 03:37 → 2N 07-09 05:10
DX: I48.91 Unspecified atrial fibrillation; I50.22 Chronic systolic (congestive) heart failure; Z91.14 Patient's other noncompliance with medication regimen; L97.419 Non-pressure chronic ulcer of right heel and midfoot with unspecified severity; L97.529 Non-pressure chronic ulcer of other part of left foot with unspecified severity; D63.1 Anemia in chronic kidney disease; I48.92 Unspecified atrial flutter; N18.30 Chronic kidney disease, stage 3 unspecified; Z79.84 Long term (current) use of oral hypoglycemic drugs; I87.8 Other specified disorders of veins; Z86.73 Personal history of transient ischemic attack (TIA), and cerebral infarction without residual deficits; L97.329 Non-pressure chronic ulcer of left ankle with unspecified severity; E11.622 Type 2 diabetes mellitus with other skin ulcer; L97.219 Non-pressure chronic ulcer of right calf with unspecified severity; E11.00 Type 2 diabetes mellitus with hyperosmolarity without nonketotic hyperglycemic-hyperosmolar coma (NKHHC); I13.0 Hypertensive heart and chronic kidney disease with heart failure and stage 1 through stage 4 chronic kidney disease, or unspecified chronic kidney disease; L03.116 Cellulitis of left lower limb; B95.1 Streptococcus, group B, as the cause of diseases classified elsewhere; L97.519 Non-pressure chronic ulcer of other part of right foot with unspecified severity; I44.7 Left bundle-branch block, unspecified; L97.221 Non-pressure chronic ulcer of left calf limited to breakdown of skin; E11.22 Type 2 diabetes mellitus with diabetic chronic kidney disease; N17.9 Acute kidney failure, unspecified; E78.5 Hyperlipidemia, unspecified; Z79.899 Other long term (current) drug therapy; Z79.01 Long term (current) use of anticoagulants; L97.319 Non-pressure chronic ulcer of right ankle with unspecified severity; L03.115 Cellulitis of right lower limb; R79.1 Abnormal coagulation profile; I95.9 Hypotension, unspecified